=== PATIENT | female | born 1940 | race Caucasian/White ===

== ENCOUNTER 2018-05-17 19:58 | Observation (INO) | payer MEDICARE ==
[2018-05-17] MEDS ORDERED: DUONEB 0.5-3 MG/3 ml Neb IH ONE ×2 (20:28→21:01)
[2018-05-17] MEDS ORDERED: Sodium Chloride 0.9% 1000 ML 1,000 ML IV SCH (20:30)
[2018-05-17] MEDS ORDERED: Sodium Chloride 0.9% 1000 ML 1,000 ML ONE (20:33)
--- NOTE | 2018-05-17 20:34 | ERPHSYRPT ---
- History of Present Illness Time Seen by Provider: 05/17/18 20:23 Source: patient Exam Limitations: no limitations Patient Subjective Stated Complaint: PT C/O COUGHING UP PHLEGM AND SOB X 4 DAYS. Triage Nursing Assessment: PALE/WARM/DRY, INCREASED RESP RATE AND EFFORT, HYPOXIC ON ROOM AIR, A&OX4, PT WHEELED TO ROOM, ABLE TO STAND AND TRANSFER FROM CHAIR TO BED. Physician History: 78-year-old white female with history of cataracts, COPD, hypercholesterolemia, peripheral vascular disease, arrives with complaint of cough, shortness of breath, coughing up phlegm, occasional increased temperature, vomiting symptoms for 4 days She denies any chest pain. Past medical history includes cataracts, COPD, hypercholesterolemia, peripheral vascular disease, hemorrhoids, polyps, arthritis, past surgical history includes cardiac catheter, hysterectomy, breast biopsy on the left, Social history former smoker Timing/Duration: day(s) (4 days) Activities at Onset: none Severity of Dyspnea-Max: moderate Severity of Dyspnea-Current: mild Modifying Factors: Improves With: nothing Associated Symptoms: cough, fever, productive cough, No anxiety, No chest pain/ discomfort, No edema, No insomnia, No loss of appetite, No lightheadedness, No wheezing, No weakness, No ankle swelling, No chills, No hemoptysis, No calf pain , No dizziness, No heaviness, No heart racing, No lightheadedness, No leg swelling, No muscle spasms feet, No muscle spasms hands, No painful breathing, No sweating, No tightness, No tingling face, No tingling hands International travel in last 2 weeks: No Allergies/Adverse Reactions: No Known Drug Allergies Allergy (Verified 05/17/18 20:04) Home Medications: Albuterol 17 gm IH DAILY PRN PRN 09/16/12 [History] Aspirin [Baby Aspirin] 81 mg PO DAILY 09/16/12 [History] Atorvastatin Calcium 40 mg PO DAILY 09/16/12 [History] Diltiazem HCl 240 mg [Cardizem CD 240 MG] 240 mg PO DAILY 09/16/12 [ History] Docusate Sodium [Stool Softener] 100 mg PO DAILY 09/16/12 [History] Fluticasone/Salmeterol [Advair Hfa 115-21 Mcg Inhaler] 8 gm IH BID 09/16/12 [ History] Ipratropium/Albuterol Sulfate [Combivent Inhaler] 15 gm IH BID 09/16/12 [History ] Metoprolol Tartrate 50 mg [Lopressor 50 MG] 50 mg PO BID 09/16/12 [History ] Potassium Chloride [Klor-Con 8] 8 meq PO DAILY 09/16/12 [History] Triamterene/Hydrochlorothiazid [Triamterene-Hctz 75-50 mg Tab] 1 each PO DAILY 09/16/12 [History] Calcium Carb, Citrate/Vit D3 [Calcium + D3 ER Tablet] 1 tab PO BID 05/17/18 [ History] Hx Tetanus, Diphtheria Vaccination/Date Given: No Hx Influenza Vaccination/Date Given: No Hx Pneumococcal Vaccination/Date Given: No Immunizations Up to Date: No - Review of Systems Constitutional: No Fever, No Chills, No Fatigue, No Lethargy, No Malaise, No Night Sweats, No Weakness, No Weight Loss Eyes: No Symptoms Ears, Nose, & Throat: No Symptoms Respiratory: Cough, Dyspnea, No Wheezing Cardiac: No Chest Pain, No Edema, No Syncope Abdominal/Gastrointestinal: Nausea, Vomiting, No Abdominal Pain, No Diarrhea Genitourinary Symptoms: No Dysuria Musculoskeletal: No Back Pain, No Neck Pain Skin: No Rash Neurological: No Dizziness, No Focal Weakness, No Sensory Changes Psychological: No Symptoms Endocrine: No Symptoms All Other Systems: Reviewed and Negative - Past Medical History Pertinent Past Medical History: Yes Neurological History: No Pertinent History ENT History: Cataracts Cardiac History: High Cholesterol, Hypertension, Peripheral Vascular Disease Respiratory History: COPD Endocrine Medical History: No Pertinent History Musculoskeletal History: Arthritis, Fractures GI Medical History: Hemorrhoids, Polyps History: No Pertinent History Psycho-Social History: No Pertinent History Female Reproductive Disorders: No Pertinent History Other Medical History: colonoscopy 5-[address] Coronel, broken toes - Past Surgical History Past Surgical History: Yes Neuro Surgical History: No Pertinent History Cardiac: Cardiac Catheterization Respiratory: No Pertinent History Gastrointestinal: No Pertinent History Genitourinary: No Pertinent History Musculoskeletal: Other Female Surgical History: Hysterectomy, Other Other Surgical History: 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", colonoscopy with polyectomy 5-6 yrs ago, some broken toes,two breast left,biopsy - Social History Smoking Status: Former smoker Exposure to second hand smoke: Yes Drug Use: none Patient Lives Alone: Yes - Female History Hx Now: No - Nursing Vital Signs Nursing Vital Signs: Initial Vital Signs Temperature 100.7 F 05/17/18 20:05 Pulse Rate 70 05/17/18 20:05 Respiratory Rate 28 H 05/17/18 20:05 Blood Pressure 142/69 05/17/18 20:05 O2 Sat by Pulse Oximetry 85 L 05/17/18 20:05 Pain Scale Pain Intensity 0 - Physical Exam General Appearance: no apparent distress, alert Eye Exam: PERRL/EOMI Neck Exam: normal inspection, supple Respiratory Exam: normal breath sounds, chest tenderness, diminished breath sounds, wheezing Cardiovascular/Chest Exam: normal heart sounds, regular rate/rhythm Abdominal/Gastrointestinal Exam: soft, No tenderness, No distention, No mass Extremity Exam: non-tender, normal range of motion, normal inspection, no calf tenderness, no pedal edema Peripheral Pulses Exam: dorsalis-pedis (R): 2+, dorsalis-pedis (L): 2+ Neurologic Exam: alert, oriented x 3, cooperative, hris analyst II-XII nml as tested, sensation nml, No motor deficits Skin Exam: normal color, warm, No dry SpO2 Interpretation: normal (95%) SpO2: 95 - Course Nursing assessment & vital signs reviewed: Yes EKG Interpreted by Me: RATE (71 bpm), Sinus Rhythm, NORMAL AXIS, Other (EKG: Sinus rhythm, 71 bpm, normal axis, no acute ST or T wave changes noted.) Ordered Tests: Active Orders 24 hr Category Date Time Status Sales Department Supervisor STAT Care 05/17/18 20:29 Active EKG-ER Only STAT Care 05/17/18 20:28 Active IV Insertion STAT Care 05/17/18 20:28 Active Oxygen-ED Only Nasal Cannula 2 lpm Care 05/17/18 20:28 Active Pulse Oximetry (ED) STAT Care 05/17/18 20:28 Active CHEST 1 VIEW (PORTABLE) Stat Exams 05/17/18 20:29 Taken BLOOD CULTURE Stat Lab 05/17/18 20:54 Received CBC W DIFF Stat Lab 05/17/18 20:38 Completed CMP Stat Lab 05/17/18 20:38 Completed CULTURE,SPUTUM Stat Lab 05/17/18 21:57 Received D-DIMER QUANTITATION Stat Lab 05/17/18 20:56 Completed Lactic Acid Stat Lab 05/17/18 21:23 Completed NT PRO BNP Stat Lab 05/17/18 20:38 Completed PROTIME WITH INR Stat Lab 05/17/18 20:56 Completed PTT Stat Lab 05/17/18 20:56 Completed TROPONIN Q3H Lab 05/17/18 20:41 Completed TROPONIN Q3H Lab 05/17/18 23:30 Ordered TROPONIN Q3H Lab 05/18/18 02:30 Ordered TROPONIN Q3H Lab 05/18/18 05:30 Ordered TROPONIN Q3H Lab 05/18/18 08:30 Ordered UA W/RFX UR CULTURE Stat Lab 05/17/18 21:57 Received VENOUS BLOOD GAS Stat Lab 05/17/18 21:23 Completed Peak Expiratory Flow Rate ONCE RT 05/17/18 21:05 Completed Respiratory Nebulizer STAT RT 05/17/18 20:29 Completed Respiratory Therapy Assessment DAILY RT 05/17/18 21:03 Completed Medication Summary Generic Name Dose Route Start Last Admin Trade Name Freq PRN Reason Stop Dose Admin Sodium Chloride 1,000 mls @ 100 mls/hr 05/17/18 20:30 05/17/18 20:38 Sodium Chloride 0.9% 1000 Ml IV 06/16/18 20:29 100 mls/hr .Q10H JIMBO Administration Discontinued Medications Generic Name Dose Route Start Last Admin Trade Name Freq PRN Reason Stop Dose Admin Albuterol/Ipratropium 3 ml 05/17/18 20:28 05/17/18 21:06 Duoneb 0.5-3 Mg/3 Ml Neb IH 05/17/18 20:29 3 ml STAT ONE Administration Albuterol/Ipratropium Confirm 05/17/18 21:01 Duoneb 0.5-3 Mg/3 Ml Neb Administered 05/17/18 21:02 Dose 3 ml IH .STK-MED ONE Oseltamivir Phosphate 75 mg 05/17/18 22:37 Tamiflu 75mg Capsule PO 05/17/18 22:38 STAT ONE Lab/Rad Data: Laboratory Result Diagrams 05/17/18 20:38 05/17/18 20:38 Laboratory Results 05/17/18 05/17/18 05/17/18 Range/Units 21:23 21:12 20:56 WBC (4.0-10.5) K/mm3 RBC (4.1-5.4) M/mm3 Hgb (12.0-16.0) gm/dl Hct (35-47) % MCV (78-100) fl MCH (26-32) pg MCHC (32-36) g/dl RDW (11.5-14.0) % Plt Count (150-450) K/mm3 MPV (6-9.5) fl Gran % (36.0-66.0) % Eos # (Auto) (0-0.5) Absolute Lymphs (auto) (1.0-4.6) Absolute Monos (auto) (0.0-1.3) Lymphocytes % (24.0-44.0) % Monocytes % (0.0-12.0) % Eosinophils % (0.00-5.0) % Basophils % (0.0-0.4) % Absolute Granulocytes (1.4-6.9) Basophils # (0-0.4) PT 12.2 (9.95-12.35) SECONDS INR 1.05 (0.8-3.0) APTT 20.8 L (25.3-37.0) SECONDS D-Dimer 577 H* (215-500) ng/mL pO2/FiO2 Ratio 28.0 % VBG pH 7.41 (7.32-7.42) VBG pCO2 at Pat Temp 56 H (42-55) mm/Hg VBG pO2 at Pat Temp 23 L (25-40) mm/Hg VBG HCO3 35.5 H* (22-28) meq/L VBG O2 Sat (Sanjay) 41.4 L (95-100) VBG Base Excess 8.7 H (-2.0-2.0) VBG Hemoglobin 14.8 VBG Carboxyhemoglobin 2.1 (0.0-6.9) % T HGB POC Potassium 4.2 (3.5-5.1) Sodium (137-145) mmol/L Potassium (3.5-5.1) mmol/L Chloride (98-107) mmol/L Carbon Dioxide (22-30) mmol/L Anion Gap (5-15) MEQ/L BUN (7-17) mg/dL Creatinine (0.52-1.04) mg/dL Estimated GFR ML/MIN Glucose (74-106) mg/dL Lactic Acid 1.7 (0.4-2.0) Calcium (8.4-10.2) mg/dL Total Bilirubin (0.2-1.3) mg/dL AST (14-36) U/L ALT (0-35) U/L Alkaline Phosphatase (38-126) U/L Troponin I (0.000-0.034) ng/mL NT-Pro-B Natriuret Pep (0-1800) pg/mL Serum Total Protein (6.3-8.2) g/dL Albumin (3.5-5.0) g/dL Influenza Type A Ag POSITIVE (NEGATIVE) Influenza Type B Ag NEGATIVE (NEGATIVE) RSV (PCR) NEGATIVE (Negative) Group A Strep Antibody NEGATIVE (NEGATIVE) 05/17/18 05/17/18 05/17/18 Range/Units 20:41 20:38 20:38 WBC 5.4 (4.0-10.5) K/mm3 RBC 5.10 (4.1-5.4) M/mm3 Hgb 14.4 (12.0-16.0) gm/dl Hct 44.8 (35-47) % MCV 87.8 (78-100) fl MCH 28.2 (26-32) pg MCHC 32.1 (32-36) g/dl RDW 14.9 H (11.5-14.0) % Plt Count 214 (150-450) K/mm3 MPV 9.4 (6-9.5) fl Gran % 76.4 H (36.0-66.0) % Eos # (Auto) 0 (0-0.5) Absolute Lymphs (auto) 0.61 L (1.0-4.6) Absolute Monos (auto) 0.66 (0.0-1.3) Lymphocytes % 11.2 L (24.0-44.0) % Monocytes % 12.2 H (0.0-12.0) % Eosinophils % 0.0 (0.00-5.0) % Basophils % 0.2 (0.0-0.4) % Absolute Granulocytes 4.15 (1.4-6.9) Basophils # 0.01 (0-0.4) PT (9.95-12.35) SECONDS INR (0.8-3.0) APTT (25.3-37.0) SECONDS D-Dimer (215-500) ng/mL pO2/FiO2 Ratio % VBG pH (7.32-7.42) VBG pCO2 at Pat Temp (42-55) mm/Hg VBG pO2 at Pat Temp (25-40) mm/Hg VBG HCO3 (22-28) meq/L VBG O2 Sat (Sanjay) (95-100) VBG Base Excess (-2.0-2.0) VBG Hemoglobin VBG Carboxyhemoglobin (0.0-6.9) % T HGB POC Potassium (3.5-5.1) Sodium 135 L (137-145) mmol/L Potassium 3.8 (3.5-5.1) mmol/L Chloride 91 L (98-107) mmol/L Carbon Dioxide 32 H (22-30) mmol/L Anion Gap 16.3 H (5-15) MEQ/L BUN 35 H (7-17) mg/dL Creatinine 1.50 H (0.52-1.04) mg/dL Estimated GFR 35.5 ML/MIN Glucose 101 (74-106) mg/dL Lactic Acid (0.4-2.0) Calcium 10.3 H (8.4-10.2) mg/dL Total Bilirubin 0.70 (0.2-1.3) mg/dL AST 36 (14-36) U/L ALT 25 (0-35) U/L Alkaline Phosphatase 79 (38-126) U/L Troponin I < 0.012 (0.000-0.034) ng/mL NT-Pro-B Natriuret Pep 329 (0-1800) pg/mL Serum Total Protein 8.2 (6.3-8.2) g/dL Albumin 4.2 (3.5-5.0) g/dL Influenza Type A Ag (NEGATIVE) Influenza Type B Ag (NEGATIVE) RSV (PCR) (Negative) Group A Strep Antibody (NEGATIVE) - Progress Progress: improved Air Movement: fair Progress Note: 05/17/18 22:41 78-year-old white female arrives with complaint of shortness of breath cough protective of white sputum symptoms going on for few days patient with oxygenation of 85% on room air on arrival. Patient with EKG remarkable for sinus rhythm at 71 bpm normal axis no acute ST or T wave changes are noted Patient's labs CBC white blood cell 5.4 hemoglobin 14.4 hematocrit 44.8 platelets 214 Chest x-ray appears to show COPD no acute changes. Patient with the essentially normal chemistry patient with positive influenza a troponin within normal limits BMP 329. Patient has improved after receiving albuterol treatment patient has also been given IV normal saline also given Tamiflu. I've discussed patient's case with Dr. Adams will give patient IV steroids place her on telemetry observation provide albuterol treatments provide Tamiflu provide IV fluids. Impression 1 shortness of breath. 2 COPD. 3 influenza A. - Departure Departure Disposition: Observation Clinical Impression: COPD with exacerbation, Shortness of breath, Influenza A Condition: Fair Critical Care Time: No Referrals: CARL CORONEL [Primary Care Provider] - Instructions: Chronic Obstructive Pulmonary Disease
[2018-05-17 20:44] LABS: BASOPHIL % 0.2 % (0.0-0.4); Basophil (Absolute #) 0.01 (0-0.4); Eosinophil (Absolute #) 0 (0-0.5); Granulocyte Absolute (ANC) 4.15 (1.4-6.9); Granulocytes % 76.4 % (36.0-66.0); Hematocrit 44.8 % (35-47); Hemoglobin 14.4 gm/dl (12.0-16.0); Lymphocyte (Absolute #) 0.61 (1.0-4.6); Lymphocytes % 11.2 % (24.0-44.0); Mean Cell Volume 87.8 fl (78-100); Mean Corpuscular Hemoglobin 28.2 pg (26-32); Mean Corpuscular Hgb Concent. 32.1 g/dl (32-36); Mean Platelet Volume 9.4 fl (6-9.5); Monocyte (Absolute #) 0.66 (0.0-1.3); Monocytes % 12.2 % (0.0-12.0); Platelet Count 214 K/mm3 (150-450); Red Cell Distribution Width 14.9 % (11.5-14.0); White Blood Count 5.4 K/mm3 (4.0-10.5)
[2018-05-17 20:57] LABS: ALBUMIN 4.2 g/dL (3.5-5.0); ANION GAP 16.3 MEQ/L (5-15); BILIRUBIN,TOTAL 0.7 mg/dL (0.2-1.3); Calcium 10.3 mg/dL (8.4-10.2); Creatinine 1 1.5 mg/dL (0.52-1.04); Potassium 3.8 mmol/L (3.5-5.1); Total Protein 8.2 g/dL (6.3-8.2)
[2018-05-17 21:09] LABS: INR 1.05 (0.8-3.0); PROTIME 12.2 SECONDS (9.95-12.35)
[2018-05-17 21:12] LABS: PTT 20.8 SECONDS (25.3-37.0)
[2018-05-17 21:28] LABS: Lactic Acid 1.7 (0.4-2.0); VBG BASE EXCESS 8.7 (-2.0-2.0); VBG CARBOXYHEMOGLOBIN 2.1 % T HGB (0.0-6.9); VBG HCO3- 35.5 meq/L (22-28); VBG HEMOGLOBIN 14.8; VBG O2 SATURATION 41.4 (95-100); VBG POTASSIUM 4.2 (3.5-5.1); VBG pH 7.41 (7.32-7.42)
[2018-05-17 21:51] LABS: Group A Strep NEGATIVE (NEGATIVE)
[2018-05-17 21:52] LABS: INFLUENZA A POSITIVE (NEGATIVE); INFLUENZA B NEGATIVE (NEGATIVE); RESPIRATORY SYNCTIAL VIRUS NEGATIVE (Negative)
[2018-05-17 22:29] LABS: Appearance SLIGHTLY CLOUDY (CLEAR); Bilirubin NEGATIVE (NEGATIVE); Blood NEGATIVE Ery/ul (0-5); Glucose NEGATIVE (NEGATIVE); Hyaline Casts 0-2 /LPF (0-2); Ketones NEGATIVE (NEGATIVE); Leukocyte Esterase NEGATIVE (NEGATIVE); Mucus SLIGHT /HPF (NEGATIVE); Nitrite NEGATIVE (NEGATIVE); Protein,Urine Dip NEGATIVE (Negative); Specific Gravity 1.018 (1.005-1.025); Urobilinogen 2 mg/dL (0-1); WBC 0-2 /HPF (0-5)
[2018-05-17] MEDS ORDERED: Tamiflu 75MG Capsule PO ONE ×2 (22:37→22:53)
[2018-05-17 22:42] LABS: Bacteria NONE SEEN /HPF (NEGATIVE)
[2018-05-17] MEDS ORDERED: solu-MEDROL 125 MG IV ONE (22:43)
[2018-05-17] MEDS ORDERED: solu-MEDROL 125 MG ONE (22:53)
[2018-05-17] MEDS ORDERED: DUONEB 0.5-3 MG/3 ml Neb IH PRN (23:31)
[2018-05-18] MEDS: solu-MEDROL 125 MG IV SCH ×2 (02:12→04:53)
[2018-05-18] MEDS: Sodium Chloride 0.9% 1000 ML 1,000 ML IV SCH ×3 (02:13→16:19)
[2018-05-18 05:53] LABS: BASOPHIL % 0.2 % (0.0-0.4); Basophil (Absolute #) 0.01 (0-0.4); Eosinophil (Absolute #) 0 (0-0.5); Granulocyte Absolute (ANC) 5.23 (1.4-6.9); Granulocytes % 88.7 % (36.0-66.0); Hematocrit 41.7 % (35-47); Hemoglobin 13.4 gm/dl (12.0-16.0); Lymphocyte (Absolute #) 0.51 (1.0-4.6); Lymphocytes % 8.6 % (24.0-44.0); Mean Corpuscular Hemoglobin 28.3 pg (26-32); Mean Corpuscular Hgb Concent. 32.1 g/dl (32-36); Mean Platelet Volume 9.1 fl (6-9.5); Monocyte (Absolute #) 0.15 (0.0-1.3); Monocytes % 2.5 % (0.0-12.0); Platelet Count 196 K/mm3 (150-450); Red Blood Count 4.74 M/mm3 (4.1-5.4); Red Cell Distribution Width 14.9 % (11.5-14.0); White Blood Count 5.9 K/mm3 (4.0-10.5)
[2018-05-18 06:07] LABS: ALBUMIN 3.7 g/dL (3.5-5.0); ANION GAP 13.9 MEQ/L (5-15); BILIRUBIN,TOTAL 0.6 mg/dL (0.2-1.3); Calcium 9.5 mg/dL (8.4-10.2); Creatinine 1 1.17 mg/dL (0.52-1.04); Potassium 3.5 mmol/L (3.5-5.1); Total Protein 7.2 g/dL (6.3-8.2)
[2018-05-18 06:45] LABS: Slide Review 1 YES
[2018-05-18] MEDS ORDERED: Advair Hfa 115/21 Common canister IH SCH (07:00)
--- NOTE | 2018-05-18 08:14 | PCM.HP ---
History of Present Illness - Chief Complaint Chief Complaint: COPD, SOB, Flu A History of Present Illness: is a 78 year old female presents to ER with a several day history of cough and worsening shortness of breath and weakness, she was weak and having difficulty ambulating from room to room yesterday in her home, came and found to have influenza A, feeling better since admission. initially had vomiting and diarrhea associated with her illness - Review of Systems Constitutional: Fever, Weakness Ears, Nose, & Throat: No Symptoms Respiratory: Cough, Short Of Breath Cardiac: No Chest Pain, No Edema, No Syncope Abdominal/Gastrointestinal: Vomiting, Diarrhea, No Abdominal Pain, No Nausea Skin: No Rash All Other Systems: Reviewed and Negative Medications & Allergies Home Medications: Home Medication List Albuterol 17 gm IH DAILY PRN PRN 09/16/12 [History Confirmed 05/17/18] Aspirin [Baby Aspirin] 81 mg PO DAILY 09/16/12 [History Confirmed 05/17/18] Atorvastatin Calcium 40 mg PO DAILY 09/16/12 [History Confirmed 05/17/18] Diltiazem HCl 240 mg [Cardizem CD 240 MG] 240 mg PO DAILY 09/16/12 [ History Confirmed 05/17/18] Docusate Sodium [Stool Softener] 100 mg PO DAILY 09/16/12 [History Confirmed 07/30] Fluticasone/Salmeterol [Advair Hfa 115-21 Mcg Inhaler] 8 gm IH BID 09/16/12 [ History Confirmed 05/17/18] Ipratropium/Albuterol Sulfate [Combivent Inhaler] 15 gm IH BID 09/16/12 [ History Confirmed 05/17/18] Metoprolol Tartrate 50 mg [Lopressor 50 MG] 50 mg PO BID 09/16/12 [ History Confirmed 05/17/18] Potassium Chloride [Klor-Con 8] 8 meq PO DAILY 09/16/12 [History Confirmed 05/17] Triamterene/Hydrochlorothiazid [Triamterene-Hctz 75-50 mg Tab] 1 each PO DAILY 09/16/12 [History Confirmed 05/17/18] Calcium Carb, Citrate/Vit D3 [Calcium + D3 ER Tablet] 1 tab PO BID 05/17/18 [ History Confirmed 05/17/18] Allergies/Adverse Reactions: Allergies Allergy/AdvReac Type Severity Reaction Status Date / Time No Known Drug Allergies Allergy Verified 05/17/18 20:04 - Past Medical History Past Medical History: Yes Neurological History: No Pertinent History ENT History: Cataracts Cardiac History: High Cholesterol, Hypertension, Peripheral Vascular Disease Respiratory History: COPD Endocrine Medical History: No Pertinent History Musculoskelatal History: Arthritis, Fractures GI Medical History: Hemorrhoids, Polyps History: No Pertinent History Pyscho-Social History: No Pertinent History Reproductive Disorders: No Pertinent History Comment: colonoscopy 5-[address] Coronel, broken toes - Female History Are you now?: No - Past Surgical History Past Surgical History: Yes Neuro Surgical History: No Pertinent History Cardiac History: Cardiac Catheterization Respiratory Surgery: No Pertinent History GI Surgical History: No Pertinent History Genitourinary Surgical Hx: No Pertinent History Musculskeletal Surgical Hx: Other Female Surgical History: Hysterectomy, Other Other Surgical History: 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", colonoscopy with polyectomy 5-6 yrs ago, some broken toes,two breast left,biopsy - Social History Smoking Status: Former smoker Exposure to second hand smoke: Yes Alcohol: None Drug Use: none - Physical Exam Vital Signs: Vital Signs - 24 hr Temp Pulse Resp BP Pulse Ox 05/18/18 07:23 98.2 F 80 18 129/58 97 05/18/18 04:35 68 18 93 L 05/18/18 04:00 97.9 F 69 17 111/61 93 L 05/18/18 00:14 98.8 F 82 19 127/60 92 L 05/18/18 00:00 98.9 F 82 19 127/60 92 L 05/17/18 23:45 93 L 05/17/18 23:01 79 24 128/66 92 L 05/17/18 22:43 95 05/17/18 21:57 75 18 130/68 95 05/17/18 21:07 68 19 95 05/17/18 20:39 88 L 05/17/18 20:13 71 24 95 05/17/18 20:05 100.7 F 70 28 H 142/69 85 L Oxygen-Last 24 hours O2 Percentage 2 Liters = 28% O2 Percentage 2 Liters = 28% O2 Percentage 2 Liters = 28% O2 Percentage 2 Liters = 28% O2 Percentage 2 Liters = 28% O2 Percentage 2 Liters = 28% General Appearance: no apparent distress Neurologic Exam: alert, oriented x 3 Respiratory Exam: diminished breath sounds, prolonged expirations Cardiovascular Exam: regular rate/rhythm, normal heart sounds, normal peripheral pulses Gastrointestinal/Abdomen Exam: soft, normal bowel sounds, No tenderness, No mass Extremity Exam: normal inspection, normal range of motion, pelvis stable Skin Exam: normal color, warm, dry, No rash Results - Labs Lab/Micro Results: Lab Results-Last 24 Hours 05/17/18 05/17/18 05/17/18 Range/Units 00:03 20:38 20:38 WBC 5.4 (4.0-10.5) K/mm3 RBC 5.10 (4.1-5.4) M/mm3 Hgb 14.4 (12.0-16.0) gm/dl Hct 44.8 (35-47) % MCV 87.8 (78-100) fl MCH 28.2 (26-32) pg MCHC 32.1 (32-36) g/dl RDW 14.9 H (11.5-14.0) % Plt Count 214 (150-450) K/mm3 MPV 9.4 (6-9.5) fl Gran % 76.4 H (36.0-66.0) % Eos # (Auto) 0 (0-0.5) Absolute Lymphs (auto) 0.61 L (1.0-4.6) Absolute Monos (auto) 0.66 (0.0-1.3) Lymphocytes % 11.2 L (24.0-44.0) % Monocytes % 12.2 H (0.0-12.0) % Eosinophils % 0.0 (0.00-5.0) % Basophils % 0.2 (0.0-0.4) % Absolute Granulocytes 4.15 (1.4-6.9) Basophils # 0.01 (0-0.4) PT (9.95-12.35) SECONDS INR (0.8-3.0) APTT (25.3-37.0) SECONDS D-Dimer (215-500) ng/mL pO2/FiO2 Ratio % VBG pH (7.32-7.42) VBG pCO2 at Pat Temp (42-55) mm/Hg VBG pO2 at Pat Temp (25-40) mm/Hg VBG HCO3 (22-28) meq/L VBG O2 Sat (Sanjay) (95-100) VBG Base Excess (-2.0-2.0) VBG Hemoglobin VBG Carboxyhemoglobin (0.0-6.9) % T HGB POC Potassium (3.5-5.1) Sodium 135 L (137-145) mmol/L Potassium 3.8 (3.5-5.1) mmol/L Chloride 91 L (98-107) mmol/L Carbon Dioxide 32 H (22-30) mmol/L Anion Gap 16.3 H (5-15) MEQ/L BUN 35 H (7-17) mg/dL Creatinine 1.50 H (0.52-1.04) mg/dL Estimated GFR 35.5 ML/MIN Glucose 101 (74-106) mg/dL Lactic Acid (0.4-2.0) Calcium 10.3 H (8.4-10.2) mg/dL Total Bilirubin 0.70 (0.2-1.3) mg/dL AST 36 (14-36) U/L ALT 25 (0-35) U/L Alkaline Phosphatase 79 (38-126) U/L Troponin I < 0.012 (0.000-0.034) ng/mL NT-Pro-B Natriuret Pep 329 (0-1800) pg/mL Serum Total Protein 8.2 (6.3-8.2) g/dL Albumin 4.2 (3.5-5.0) g/dL Urine Color (YELLOW) Urine Appearance (CLEAR) Urine pH (5-6) Ur Specific [place] (1.005-1.025) Urine Protein (Negative) Urine Ketones (NEGATIVE) Urine Blood (0-5) David/ul Urine Nitrite (NEGATIVE) Urine Bilirubin (NEGATIVE) Urine Urobilinogen (0-1) mg/dL Ur Leukocyte Esterase (NEGATIVE) Urine WBC (Auto) (0-5) /HPF Urine RBC (Auto) (0-2) /HPF U Hyaline Cast (Auto) (0-2) /LPF U Epithel Cells (Auto) (FEW) /HPF Urine Bacteria (Auto) (NEGATIVE) /HPF Urine Mucus (Auto) (NEGATIVE) /HPF Urine Culture Reflexed (NO) Urine Glucose (NEGATIVE) mg/dL Influenza Type A Ag (NEGATIVE) Influenza Type B Ag (NEGATIVE) RSV (PCR) (Negative) Group A Strep Antibody (NEGATIVE) Slides for Path Review 05/17/18 05/17/18 05/17/18 Range/Units 20:41 20:56 21:12 WBC (4.0-10.5) K/mm3 RBC (4.1-5.4) M/mm3 Hgb (12.0-16.0) gm/dl Hct (35-47) % MCV (78-100) fl MCH (26-32) pg MCHC (32-36) g/dl RDW (11.5-14.0) % Plt Count (150-450) K/mm3 MPV (6-9.5) fl Gran % (36.0-66.0) % Eos # (Auto) (0-0.5) Absolute Lymphs (auto) (1.0-4.6) Absolute Monos (auto) (0.0-1.3) Lymphocytes % (24.0-44.0) % Monocytes % (0.0-12.0) % Eosinophils % (0.00-5.0) % Basophils % (0.0-0.4) % Absolute Granulocytes (1.4-6.9) Basophils # (0-0.4) PT 12.2 (9.95-12.35) SECONDS INR 1.05 (0.8-3.0) APTT 20.8 L (25.3-37.0) SECONDS D-Dimer 577 H* (215-500) ng/mL pO2/FiO2 Ratio % VBG pH (7.32-7.42) VBG pCO2 at Pat Temp (42-55) mm/Hg VBG pO2 at Pat Temp (25-40) mm/Hg VBG HCO3 (22-28) meq/L VBG O2 Sat (Sanjay) (95-100) VBG Base Excess (-2.0-2.0) VBG Hemoglobin VBG Carboxyhemoglobin (0.0-6.9) % T HGB POC Potassium (3.5-5.1) Sodium (137-145) mmol/L Potassium (3.5-5.1) mmol/L Chloride (98-107) mmol/L Carbon Dioxide (22-30) mmol/L Anion Gap (5-15) MEQ/L BUN (7-17) mg/dL Creatinine (0.52-1.04) mg/dL Estimated GFR ML/MIN Glucose (74-106) mg/dL Lactic Acid (0.4-2.0) Calcium (8.4-10.2) mg/dL Total Bilirubin (0.2-1.3) mg/dL AST (14-36) U/L ALT (0-35) U/L Alkaline Phosphatase (38-126) U/L Troponin I < 0.012 (0.000-0.034) ng/mL NT-Pro-B Natriuret Pep (0-1800) pg/mL Serum Total Protein (6.3-8.2) g/dL Albumin (3.5-5.0) g/dL Urine Color (YELLOW) Urine Appearance (CLEAR) Urine pH (5-6) Ur Specific [place] (1.005-1.025) Urine Protein (Negative) Urine Ketones (NEGATIVE) Urine Blood (0-5) David/ul Urine Nitrite (NEGATIVE) Urine Bilirubin (NEGATIVE) Urine Urobilinogen (0-1) mg/dL Ur Leukocyte Esterase (NEGATIVE) Urine WBC (Auto) (0-5) /HPF Urine RBC (Auto) (0-2) /HPF U Hyaline Cast (Auto) (0-2) /LPF U Epithel Cells (Auto) (FEW) /HPF Urine Bacteria (Auto) (NEGATIVE) /HPF Urine Mucus (Auto) (NEGATIVE) /HPF Urine Culture Reflexed (NO) Urine Glucose (NEGATIVE) mg/dL Influenza Type A Ag POSITIVE (NEGATIVE) Influenza Type B Ag NEGATIVE (NEGATIVE) RSV (PCR) NEGATIVE (Negative) Group A Strep Antibody NEGATIVE (NEGATIVE) Slides for Path Review 05/17/18 05/17/18 05/18/18 Range/Units 21:23 21:57 05:20 WBC 5.9 (4.0-10.5) K/mm3 RBC 4.74 (4.1-5.4) M/mm3 Hgb 13.4 (12.0-16.0) gm/dl Hct 41.7 (35-47) % MCV 88.0 (78-100) fl MCH 28.3 (26-32) pg MCHC 32.1 (32-36) g/dl RDW 14.9 H (11.5-14.0) % Plt Count 196 (150-450) K/mm3 MPV 9.1 (6-9.5) fl Gran % 88.7 H (36.0-66.0) % Eos # (Auto) 0 (0-0.5) Absolute Lymphs (auto) 0.51 L (1.0-4.6) Absolute Monos (auto) 0.15 (0.0-1.3) Lymphocytes % 8.6 L (24.0-44.0) % Monocytes % 2.5 (0.0-12.0) % Eosinophils % 0.0 (0.00-5.0) % Basophils % 0.2 (0.0-0.4) % Absolute Granulocytes 5.23 (1.4-6.9) Basophils # 0.01 (0-0.4) PT (9.95-12.35) SECONDS INR (0.8-3.0) APTT (25.3-37.0) SECONDS D-Dimer (215-500) ng/mL pO2/FiO2 Ratio 28.0 % VBG pH 7.41 (7.32-7.42) VBG pCO2 at Pat Temp 56 H (42-55) mm/Hg VBG pO2 at Pat Temp 23 L (25-40) mm/Hg VBG HCO3 35.5 H* (22-28) meq/L VBG O2 Sat (Sanjay) 41.4 L (95-100) VBG Base Excess 8.7 H (-2.0-2.0) VBG Hemoglobin 14.8 VBG Carboxyhemoglobin 2.1 (0.0-6.9) % T HGB POC Potassium 4.2 (3.5-5.1) Sodium (137-145) mmol/L Potassium (3.5-5.1) mmol/L Chloride (98-107) mmol/L Carbon Dioxide (22-30) mmol/L Anion Gap (5-15) MEQ/L BUN (7-17) mg/dL Creatinine (0.52-1.04) mg/dL Estimated GFR ML/MIN Glucose (74-106) mg/dL Lactic Acid 1.7 (0.4-2.0) Calcium (8.4-10.2) mg/dL Total Bilirubin (0.2-1.3) mg/dL AST (14-36) U/L ALT (0-35) U/L Alkaline Phosphatase (38-126) U/L Troponin I (0.000-0.034) ng/mL NT-Pro-B Natriuret Pep (0-1800) pg/mL Serum Total Protein (6.3-8.2) g/dL Albumin (3.5-5.0) g/dL Urine Color YELLOW (YELLOW) Urine Appearance SLIGHTLY CLOUDY (CLEAR) Urine pH 6.0 (5-6) Ur Specific [place] 1.018 (1.005-1.025) Urine Protein NEGATIVE (Negative) Urine Ketones NEGATIVE (NEGATIVE) Urine Blood NEGATIVE (0-5) David/ul Urine Nitrite NEGATIVE (NEGATIVE) Urine Bilirubin NEGATIVE (NEGATIVE) Urine Urobilinogen 2 (0-1) mg/dL Ur Leukocyte Esterase NEGATIVE (NEGATIVE) Urine WBC (Auto) 0-2 (0-5) /HPF Urine RBC (Auto) 3-5 (0-2) /HPF U Hyaline Cast (Auto) 0-2 (0-2) /LPF U Epithel Cells (Auto) NONE (FEW) /HPF Urine Bacteria (Auto) NONE SEEN (NEGATIVE) /HPF Urine Mucus (Auto) SLIGHT (NEGATIVE) /HPF Urine Culture Reflexed NO (NO) Urine Glucose NEGATIVE (NEGATIVE) mg/dL Influenza Type A Ag (NEGATIVE) Influenza Type B Ag (NEGATIVE) RSV (PCR) (Negative) Group A Strep Antibody (NEGATIVE) Slides for Path Review YES 05/18/18 Range/Units 05:20 WBC (4.0-10.5) K/mm3 RBC (4.1-5.4) M/mm3 Hgb (12.0-16.0) gm/dl Hct (35-47) % MCV (78-100) fl MCH (26-32) pg MCHC (32-36) g/dl RDW (11.5-14.0) % Plt Count (150-450) K/mm3 MPV (6-9.5) fl Gran % (36.0-66.0) % Eos # (Auto) (0-0.5) Absolute Lymphs (auto) (1.0-4.6) Absolute Monos (auto) (0.0-1.3) Lymphocytes % (24.0-44.0) % Monocytes % (0.0-12.0) % Eosinophils % (0.00-5.0) % Basophils % (0.0-0.4) % Absolute Granulocytes (1.4-6.9) Basophils # (0-0.4) PT (9.95-12.35) SECONDS INR (0.8-3.0) APTT (25.3-37.0) SECONDS D-Dimer (215-500) ng/mL pO2/FiO2 Ratio % VBG pH (7.32-7.42) VBG pCO2 at Pat Temp (42-55) mm/Hg VBG pO2 at Pat Temp (25-40) mm/Hg VBG HCO3 (22-28) meq/L VBG O2 Sat (Sanjay) (95-100) VBG Base Excess (-2.0-2.0) VBG Hemoglobin VBG Carboxyhemoglobin (0.0-6.9) % T HGB POC Potassium (3.5-5.1) Sodium 134 L (137-145) mmol/L Potassium 3.5 (3.5-5.1) mmol/L Chloride 96 L (98-107) mmol/L Carbon Dioxide 28 (22-30) mmol/L Anion Gap 13.9 (5-15) MEQ/L BUN 31 H (7-17) mg/dL Creatinine 1.17 H (0.52-1.04) mg/dL Estimated GFR 47.3 ML/MIN Glucose 187 H (74-106) mg/dL Lactic Acid (0.4-2.0) Calcium 9.5 (8.4-10.2) mg/dL Total Bilirubin 0.60 (0.2-1.3) mg/dL AST 32 (14-36) U/L ALT 22 (0-35) U/L Alkaline Phosphatase 65 (38-126) U/L Troponin I (0.000-0.034) ng/mL NT-Pro-B Natriuret Pep (0-1800) pg/mL Serum Total Protein 7.2 (6.3-8.2) g/dL Albumin 3.7 (3.5-5.0) g/dL Urine Color (YELLOW) Urine Appearance (CLEAR) Urine pH (5-6) Ur Specific [place] (1.005-1.025) Urine Protein (Negative) Urine Ketones (NEGATIVE) Urine Blood (0-5) David/ul Urine Nitrite (NEGATIVE) Urine Bilirubin (NEGATIVE) Urine Urobilinogen (0-1) mg/dL Ur Leukocyte Esterase (NEGATIVE) Urine WBC (Auto) (0-5) /HPF Urine RBC (Auto) (0-2) /HPF U Hyaline Cast (Auto) (0-2) /LPF U Epithel Cells (Auto) (FEW) /HPF Urine Bacteria (Auto) (NEGATIVE) /HPF Urine Mucus (Auto) (NEGATIVE) /HPF Urine Culture Reflexed (NO) Urine Glucose (NEGATIVE) mg/dL Influenza Type A Ag (NEGATIVE) Influenza Type B Ag (NEGATIVE) RSV (PCR) (Negative) Group A Strep Antibody (NEGATIVE) Slides for Path Review - Radiology Impressions Radiology Exams & Impressions: Radiology Procedures Category Date Time Status CHEST 1 VIEW (PORTABLE) Stat Exams 05/17/18 20:29 Taken - Other Procedures and Tests Respiratory Therapy 05/17/18 23:31 Oxygen Nasal Cannula 2 lpm 05/18/18 04:34 Respiratory Therapy Assessment DAILY 05/18/18 07:00 Respiratory MDI BID Assessment/Plan (1) Influenza A Current Visit: Yes Status: Acute Assessment & Plan: continue tamiflu, fluids and supportive care at this time Code(s): J10.1 - FLU DUE TO OTH IDENT INFLUENZA VIRUS W OTH RESP MANIFEST (2) COPD (chronic obstructive pulmonary disease) Current Visit: Yes Status: Acute Assessment & Plan: no wheezing on exam, no indication for steroids at this time (3) Shortness of breath Current Visit: Yes Status: Acute Code(s): R06.02 - SHORTNESS OF BREATH
[2018-05-18] MEDS ORDERED: NON-FORMULARY ITEM (Triamterene/Hydrochlorothiazid [Triamterene-Hctz 75-50 Mg Tab] 1 EACH) PO SCH (10:00)
[2018-05-18] MEDS ORDERED: NON-FORMULARY ITEM (Potassium Chloride [Klor-Con 8] 8 MEQ) PO SCH (10:00)
--- NOTE | 2018-05-18 10:00 | XRAY ---
Indication: Cough. Comparison: May 08, 2012. Portable chest again hyperinflated with minimal bibasilar linear atelectasis/scarring. Heart is not enlarged. Bony thorax intact again with mild osteopenia and degenerative changes. No new/acute findings.
[2018-05-18] MEDS: ADVAIR 250-50 DISKUS 14 DOSE IH SCH ×2 (10:01→20:10)
[2018-05-18] MEDS: Lopressor 50 MG PO SCH ×2 (10:08→22:15)
[2018-05-18] MEDS: ECOTRIN 81 MG PO SCH (10:08)
[2018-05-18] MEDS: Colace 100 MG PO SCH (10:08)
[2018-05-18] MEDS: Klor Con 10 MEQ PO SCH (10:08)
[2018-05-18] MEDS: Cardizem CD 240 MG PO SCH (10:08)
[2018-05-18] MEDS: Tamiflu 75MG Capsule PO SCH ×2 (10:09→22:15)
[2018-05-18] MEDS: Maxzide-25MG Tablet PO SCH (10:09)
[2018-05-19] MEDS: Sodium Chloride 0.9% 1000 ML 1,000 ML IV SCH (03:00)
[2018-05-19 05:44] LABS: Hematocrit 37.8 % (35-47); Hemoglobin 12.2 gm/dl (12.0-16.0); Mean Cell Volume 87.5 fl (78-100); Mean Corpuscular Hemoglobin 28.2 pg (26-32); Mean Corpuscular Hgb Concent. 32.3 g/dl (32-36); Mean Platelet Volume 9.2 fl (6-9.5); Platelet Count 208 K/mm3 (150-450); Red Blood Count 4.32 M/mm3 (4.1-5.4); Red Cell Distribution Width 14.5 % (11.5-14.0); White Blood Count 8.7 K/mm3 (4.0-10.5)
[2018-05-19 06:01] LABS: ALBUMIN 3.3 g/dL (3.5-5.0); ANION GAP 10.7 MEQ/L (5-15); BILIRUBIN,TOTAL 0.3 mg/dL (0.2-1.3); Calcium 9.4 mg/dL (8.4-10.2); Creatinine 1 0.99 mg/dL (0.52-1.04); Potassium 3.6 mmol/L (3.5-5.1); Total Protein 6.6 g/dL (6.3-8.2)
[2018-05-19 06:41] LABS: Lymphocytes 6 % (24-44); Monocyte 3 % (0.0-12.0); Neutrophils 91 % (36.0-66.0); Total Cells Counted 100
[2018-05-19 06:42] LABS: Platelet Estimate NORMAL (NORMAL)
[2018-05-19 07:02] VITALS: BP 123/56
[2018-05-19] MEDS: ADVAIR 250-50 DISKUS 14 DOSE IH SCH (07:42)
[2018-05-19 07:48] VITALS: PULSE 64; O2SAT 93
[2018-05-19] MEDS: Klor Con 10 MEQ PO SCH (09:54)
[2018-05-19] MEDS: Lopressor 50 MG PO SCH (09:54)
[2018-05-19] MEDS: Colace 100 MG PO SCH (09:54)
[2018-05-19] MEDS: Cardizem CD 240 MG PO SCH (09:54)
[2018-05-19] MEDS: Tamiflu 75MG Capsule PO SCH (09:54)
[2018-05-19] MEDS: Maxzide-25MG Tablet PO SCH (09:54)
[2018-05-19] MEDS: ECOTRIN 81 MG PO SCH (09:54)
--- NOTE | 2018-05-19 10:28 | SSS ---
DISCHARGE DIAGNOSES: 1) INFLUENZA A. 2) HYPOXEMIA. 3) VOMITING. 4) HISTORY OF CHRONIC OBSTRUCTIVE PULMONARY DISEASE. HOSPITAL COURSE: The patient is an 78 year-old white female who had been in the doctor's office over the past week for routine check-ups and reported that her son had been ill. She began having trouble feeling bad and started having some vomiting and shortness of breath. She reports she was sick for about four days prior to the emergency room where she was found to have O2 saturation of 85%. She did swab positive for influenza A at that time. The patient was admitted to the hospital for IV fluids, oxygen, nebulizer treatments, IV steroids and Tamiflu. The patient did better with the treatments and was feeling well enough to go home having not vomited over the past 24 hours prior to the morning of 05/19/2018. We will check her O2 saturations at rest and with ambulation on room air to see if she will qualify for home oxygen at this time. She was felt ready to be discharged home with prednisone 30 mg for three days, 20 mg for three days and 10 mg for three days. Tamiflu to finish out a five day course and to follow up in the office in one week or sooner if she had any further problems at this time. PHYSICAL EXAMINATION: The patient's examination revealed a well-nourished, well-developed 78 year-old white female in no obvious distress. Most recent vitals showed a temperature 97.9F, pulse 61, respiratory rate 18, blood pressure 99/54. O2 saturation 93% on supplemental oxygen. HEENT: Normocephalic, atraumatic. Pupils equal round reactive to light. Extraocular movements intact. Oropharynx is pink and moist. NECK: Supple without lymphadenopathy, thyromegaly or JVD. CHEST: Clear to auscultation presently. HEART: Regular rate and rhythm. ABDOMEN: Soft. No palpable masses. EXTREMITIES: Without cyanosis, clubbing or edema. NEUROLOGIC: The patient is alert and oriented x3. LAB DATA AND TESTS: The patient's laboratory studies again were positive for influenza A. Most recent labs showed the patient's troponin to be less than 0.012. Sugar nonfasting was 138, BUN 32, creatinine 0.99. Electrolytes were normal. Liver enzymes were normal. Her white blood cell count was 8,700, hemoglobin 12.2, PLT count 208,000, granulocytes 91% were noted. Chest x-ray on admission was hyperinflation with minimal bibasilar linear atelectasis. The heart was not enlarged. No acute findings were noted. The patient will now be discharged home with follow up in the office in a week, on prednisone 30mg, 20 mg, 10 mg three days each, Tamiflu, PRN nebulizer treatments and usual home medications otherwise.
[2018-05-19] MEDS ORDERED: Sodium Chloride 0.9% 10 ML FLUSH Syringe IV SCH (14:00)
== END 2018-05-19 10:50 | disposition home or self-care (01) ==
LOC: ED 19:58 → MED SURG 23:24
PROVIDERS: ADMIT Family Medicine; ATTEND Family Medicine
DX: J09.X2 Influenza due to identified novel influenza A virus with other respiratory manifestations (principal); I10 Essential (primary) hypertension; E78.00 Pure hypercholesterolemia, unspecified; Z79.899 Other long term (current) drug therapy; J44.9 Chronic obstructive pulmonary disease, unspecified; R06.02 Shortness of breath; R09.02 Hypoxemia; R11.10 Vomiting, unspecified
CPT/HCPCS: 36000; 36415; 71045; 80053; 81001; 82805; 83605; 83880; 84484; 85025; 85379; 85610; 85730; 87040; 87070; 87631; 87651; 93005; 93041; 93268; 94150; 94640; 94762; 96360; 96361; 96374; 99285; G0378; J2930; A9270-GY

== ENCOUNTER 2019-04-23 11:54 | Emergency (ER) | payer MEDICARE ==
[2019-04-23] MEDS ORDERED: MOTRIN 600 MG PO ONE (12:37)
[2019-04-23] MEDS ORDERED: PERCOCET TABLET 5/325MG PO ONE (12:37)
[2019-04-23] MEDS ORDERED: PERCOCET TABLET 5/325MG ONE (12:44)
[2019-04-23] MEDS ORDERED: MOTRIN 600 MG ONE (12:45)
--- NOTE | 2019-04-23 13:18 | XRAY ---
Indication: Pain. No known injury. Comparison: None 3 views of the left ankle obtained. No bony, articular, or soft tissue abnormalities.
--- NOTE | 2019-04-23 13:29 | ERPHSYRPT ---
- History of Present Illness Time Seen by Provider: 04/23/19 11:56 Source: patient, family Exam Limitations: no limitations Patient Subjective Stated Complaint: Pt states "I went to bed night before last and yesterday I woke up yesterday and my left ankle was hurting." Triage Nursing Assessment: Pt presented alert and oriented X 3, skin pwd PT ambulates with a slow limp. Physician History: Patient has left ankle pain. Medial side. No falls no trauma. Does not remember any injuries. Patient is not diabetic. She has not tried taking Tylenol or ibuprofen for the pain. She has not seen her PCP. Started 2 days ago. Location: left ankle Quality: sharp Radiation: none Severity: mild Duration: 2 days Timing: gradual Modifying factors/associated signs and symptoms: none tried Allergies/Adverse Reactions: No Known Drug Allergies Allergy (Verified 05/17/18 20:04) Home Medications: Albuterol 17 gm IH DAILY PRN PRN 09/16/12 [History] Aspirin [Baby Aspirin] 81 mg PO DAILY 09/16/12 [History] Atorvastatin Calcium 40 mg PO DAILY 09/16/12 [History] Diltiazem HCl 240 mg [Cardizem CD 240 MG] 240 mg PO DAILY 09/16/12 [ History] Docusate Sodium [Stool Softener] 100 mg PO DAILY 09/16/12 [History] Fluticasone/Salmeterol [Advair Hfa 115-21 Mcg Inhaler] 8 gm IH BID 09/16/12 [ History] Ipratropium/Albuterol Sulfate [Combivent Inhaler] 15 gm IH BID 09/16/12 [History ] Metoprolol Tartrate 50 mg [Lopressor 50 MG] 50 mg PO BID 09/16/12 [History ] Potassium Chloride [Klor-Con 8] 8 meq PO DAILY 09/16/12 [History] Triamterene/Hydrochlorothiazid [Triamterene-Hctz 75-50 mg Tab] 1 each PO DAILY 09/16/12 [History] Calcium Carb, Citrate/Vit D3 [Calcium + D3 ER Tablet] 1 tab PO BID 05/17/18 [ History] Hx Tetanus, Diphtheria Vaccination/Date Given: Yes Hx Influenza Vaccination/Date Given: Yes Hx Pneumococcal Vaccination/Date Given: Yes Immunizations Up to Date: Yes - Review of Systems Constitutional: No Fever, No Chills Eyes: No Symptoms Ears, Nose, & Throat: No Symptoms Respiratory: No Cough, No Dyspnea Cardiac: No Chest Pain, No Edema, No Syncope Abdominal/Gastrointestinal: No Abdominal Pain, No Nausea, No Vomiting, No Diarrhea Genitourinary Symptoms: No Dysuria, No Vaginal Bleeding Musculoskeletal: Other (medial left ankle pain ), No Back Pain, No Neck Pain Skin: No Rash Neurological: No Dizziness, No Focal Weakness, No Sensory Changes Psychological: No Symptoms Endocrine: No Symptoms All Other Systems: Reviewed and Negative - Past Medical History Pertinent Past Medical History: Yes Neurological History: No Pertinent History ENT History: Cataracts Cardiac History: High Cholesterol, Hypertension, Peripheral Vascular Disease Respiratory History: COPD Endocrine Medical History: No Pertinent History Musculoskeletal History: Arthritis, Fractures GI Medical History: Hemorrhoids, Polyps History: No Pertinent History Psycho-Social History: No Pertinent History Female Reproductive Disorders: No Pertinent History Other Medical History: colonoscopy 5-[address] Coronel, broken toes - Past Surgical History Past Surgical History: Yes Neuro Surgical History: No Pertinent History Cardiac: Cardiac Catheterization Respiratory: No Pertinent History Gastrointestinal: No Pertinent History Genitourinary: No Pertinent History Musculoskeletal: Other Female Surgical History: Hysterectomy, Other Other Surgical History: 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", colonoscopy with polyectomy 5-6 yrs ago, some broken toes,two breast left,biopsy - Social History Smoking Status: Former smoker Exposure to second hand smoke: No Drug Use: none Patient Lives Alone: No - Female History Hx Now: No - Nursing Vital Signs Nursing Vital Signs: Initial Vital Signs Temperature 96.9 F 04/23/19 12:33 Pulse Rate 76 04/23/19 12:33 Respiratory Rate 20 04/23/19 12:33 Blood Pressure 146/88 04/23/19 12:33 O2 Sat by Pulse Oximetry 98 04/23/19 12:33 Pain Scale Pain Intensity [Left Ankle] 9 Pain Intensity 0 - Physical Exam General Appearance: alert Eyes, Ears, Nose, Throat Exam: moist mucous membranes Neck Exam: non-tender, supple Cardiovascular/Respiratory Exam: chest non-tender, normal breath sounds, regular rate/rhythm, no respiratory distress Gastrointestinal/Abdominal Exam: non-tender, guarding Back Exam: normal inspection, No vertebral tenderness Neuro/Tendon Exam: normal sensation, normal motor functions Mental Status Exam: alert, oriented x 3, cooperative Skin Exam: normal color, warm, dry SpO2 Interpretation: normal SpO2: 98 Comments: No obvious deformity, sensation intact, 2+ capillary refill, 2 point tactile discrimination intact. 5 out of 5 strength. Full range of motion without pain. Compartments are soft, nontender. Overlying skin shows no tenting, bruising, ecchymosis. Medial left ankle redness, mild tenderness with minimal edema. No signs of a septic joint. Ordered Tests: Active Orders 24 hr Category Date Time Status ANKLE (3 VIEWS) Stat Exams 04/23/19 12:57 Completed Medication Summary Discontinued Medications Generic Name Dose Route Start Last Admin Trade Name Freq PRN Reason Stop Dose Admin Ibuprofen 600 mg 04/23/19 12:37 04/23/19 12:46 Motrin 600 Mg PO 04/23/19 12:38 600 mg STAT ONE Administration Ibuprofen Confirm 04/23/19 12:45 Motrin 600 Mg Administered 04/23/19 12:46 Dose 600 mg .ROUTE .STK-MED ONE Oxycodone/Acetaminophen 1 tab 04/23/19 12:37 04/23/19 12:46 Percocet Tablet 5/325mg PO 04/23/19 12:38 1 tab STAT ONE Administration Oxycodone/Acetaminophen Confirm 04/23/19 12:44 Percocet Tablet 5/325mg Administered 04/23/19 12:45 Dose 1 tab .ROUTE .STK-MED ONE - Progress Progress: improved Progress Note: 04/23/19 14:01 Patient improved with Tylenol and ibuprofen. Most likely cellulitis. X-ray shows no infection. Very low suspicion for joint infection, septic joint. Patient will need follow-up with PCP in 24 to 48 hours for recheck. Return here for new or changing symptoms. - Departure Departure Disposition: Home Clinical Impression: Cellulitis Condition: Stable Critical Care Time: No Referrals: CARL CORONEL [Primary Care Provider] - Instructions: Chronic Pain (DC) Prescriptions: Doxycycline Hyclate 100 mg [Vibramycin 100 MG] 100 mg PO BID #14 tab
[2019-04-23 13:57] VITALS: BP 131/58; PULSE 67
[2019-04-23 14:02] VITALS: O2SAT 98
== END 2019-04-23 13:45 | disposition home or self-care (01) ==
LOC: ED 11:54
DX: L03.116 Cellulitis of left lower limb (principal); M25.572 Pain in left ankle and joints of left foot; J44.9 Chronic obstructive pulmonary disease, unspecified; E78.00 Pure hypercholesterolemia, unspecified; I73.9 Peripheral vascular disease, unspecified; I10 Essential (primary) hypertension; Z79.899 Other long term (current) drug therapy; Z86.010 Personal history of colon polyps
CPT/HCPCS: 73610; 99283; A9270-GY

== ENCOUNTER 2022-03-18 16:01 | Emergency (ER) | payer MEDICARE ==
[2022-03-18 16:37] VITALS: O2SAT 93
[2022-03-18] MEDS ORDERED: TYLENOL EXTRA STRENGTH 500 MG PO ONE (16:38)
[2022-03-18] MEDS ORDERED: TYLENOL EXTRA STRENGTH 500 MG ONE (16:39)
[2022-03-18 17:01] LABS: Absolute Neutrophil Ct (ANC) 6.98 x10^3/uL (1.4-6.9); BASOPHIL % 0.4 % (0.0-0.4); Basophil (Absolute #) 0.03 x10^3/uL (0-0.4); Eosinophil % 0.1 % (0.00-5.0); Eosinophil (Absolute #) 0.01 x10^3/uL (0-0.5); Hematocrit 42.1 % (35-47); Hemoglobin 13.5 g/dL (12.0-16.0); IMMATURE GRAN # 0.02 x10^3u/L (0.00-0.03); IMMATURE GRAN % 0.2 % (0.00-0.4); Lymphocyte (Absolute #) 0.54 x10^3/uL (1.0-4.6); Lymphocytes % 6.7 % (24.0-44.0); Mean Cell Volume 85.9 fL (78-100); Mean Corpuscular Hemoglobin 27.6 pg (26-32); Mean Corpuscular Hgb Concent. 32.1 g/dL (32-36); Mean Platelet Volume 9.2 fL (7.5-11.0); Monocyte (Absolute #) 0.48 x10^3/uL (0.0-1.3); Neutrophil % 86.6 % (36.0-66.0); Platelet Count 182 x10^3/uL (150-450); Red Cell Distribution Width 14.8 % (11.5-14.0); White Blood Count 8.1 x10^3/uL (4.0-10.5)
[2022-03-18 17:16] LABS: PROTIME 10.6 SECONDS (9.4-12.5); PTT 27.4 SECONDS (25.1-36.5)
[2022-03-18 17:22] LABS: ALBUMIN 4.1 g/dL (3.5-5.0); ALKALINE PHOSPHATASE 71 U/L (38-126); ANION GAP 10.7 MEQ/L (5-15); BLOOD UREA NITROGEN 19 mg/dL (7-17); CHLORIDE 102 mmol/L (98-107); Calcium 9.5 mg/dL (8.4-10.2); Carbon Dioxide 29 mmol/L (22-30); Creatinine 1 0.92 mg/dL (0.52-1.04); EST GLOMERULAR FILTRATION RATE > 60.0 ML/MIN; Glucose 112 mg/dL (74-106); NT PRO BNP 788 pg/mL (0-1800); Potassium 3.9 mmol/L (3.5-5.1); SGOT/AST 21 U/L (14-36); SGPT/ALT 18 U/L (0-35); SODIUM 138 mmol/L (137-145); Total Protein 6.8 g/dL (6.3-8.2)
[2022-03-18 17:54] LABS: INFLUENZA A NEGATIVE (NEGATIVE); INFLUENZA B NEGATIVE (NEGATIVE); RESPIRATORY SYNCTIAL VIRUS NEGATIVE (Negative)
--- NOTE | 2022-03-18 18:21 | ERPHSYRPT ---
- History of Present Illness Source: patient Exam Limitations: no limitations Patient Subjective Stated Complaint: PT BROUGHT IN BY DAUGHTER FOR FOR TESTING POSITIVE FOR COVID AND WOULD LIKE TO SEE IF CAN BE STARTED ON ANY COVID MEDS Triage Nursing Assessment: PT ALERT, ARRIVED PER WC, RESP EASY, NO COUGH, CO HEADACHE, TYLENOL LAST AT 0700. SHE ALSO CO SOME [place] BUT ABLE TO DRINK, SKIN W/D/P. ABD SOFT Physician History: 81 yo wf w +home CV19 test today presents w headache x 1 day, coryza x 2wks,nausea, and mild diarrhea. She denies vomiting, melena,hematochezia, and chest pain. Timing/Duration: other (1day for headache/2 wks for coryza) Activities at Onset: rest Severity of Dyspnea-Max: mild Severity of Dyspnea-Current: mild Possible Cause: occasional episodes Modifying Factors: Improves With: activity, coughing, rest Associated Symptoms: denies symptoms, No productive cough Allergies/Adverse Reactions: No Known Drug Allergies Allergy (Verified 03/18/22 16:22) Home Medications: Albuterol 17 gm IH DAILY PRN PRN 09/16/12 [History] Aspirin [Baby Aspirin] 81 mg PO DAILY 09/16/12 [History] Atorvastatin Calcium 40 mg PO DAILY 09/16/12 [History] Diltiazem HCl 240 mg [Cardizem CD 240 MG] 240 mg PO DAILY 09/16/12 [History] Docusate Sodium [Stool Softener] 100 mg PO DAILY 09/16/12 [History] Fluticasone/Salmeterol [Advair Hfa 115-21 Mcg Inhaler] 8 gm IH BID 09/16/12 [History] Ipratropium/Albuterol Sulfate [Combivent Inhaler] 15 gm IH BID 09/16/12 [History] Triamterene/Hydrochlorothiazid [Triamterene-Hctz 75-50 mg Tab] 1 each PO DAILY 09/16/12 [History] Calcium Carb, Citrate/Vit D3 [Calcium + D3 ER Tablet] 1 tab PO BID 05/17/18 [History] Hx Tetanus, Diphtheria Vaccination/Date Given: Yes Hx Influenza Vaccination/Date Given: Yes Hx Pneumococcal Vaccination/Date Given: Yes Immunizations Up to Date: Yes Travel Risk - International Travel Have you traveled outside of the country in past 3 weeks: No - Coronavirus Screening Symptoms: Fever, Vomiting/Diarrhea, Headaches/Body Aches/Fatigue - Vaccine Status Have you recieved a Covid-19 vaccination: Yes 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 Dates if Unknown: ? - Review of Systems Constitutional: No Symptoms, Fever, Chills Eyes: No Symptoms Ears, Nose, & Throat: No Symptoms, Nose Congestion, Nose Discharge Respiratory: No Symptoms, Cough Cardiac: No Symptoms Abdominal/Gastrointestinal: No Symptoms, Nausea, Diarrhea Genitourinary Symptoms: No Symptoms Musculoskeletal: No Symptoms Skin: No Symptoms Neurological: No Symptoms Psychological: No Symptoms Endocrine: No Symptoms, Excessive Sweating Immunological/Allergic: No Symptoms - Past Medical History Pertinent Past Medical History: Yes Neurological History: No Pertinent History ENT History: Cataracts Cardiac History: High Cholesterol, Hypertension, Myocardial Infarction ([place]), Peripheral Vascular Disease Respiratory History: COPD Endocrine Medical History: No Pertinent History Musculoskeletal History: Arthritis, Fractures GI Medical History: Hemorrhoids, Polyps History: No Pertinent History Psycho-Social History: No Pertinent History Female Reproductive Disorders: No Pertinent History Other Medical History: colonoscopy 5-[address] Coronel, broken toes - Past Surgical History Past Surgical History: Yes Neuro Surgical History: No Pertinent History Cardiac: Cardiac Catheterization Respiratory: No Pertinent History Gastrointestinal: No Pertinent History Genitourinary: No Pertinent History Musculoskeletal: Other Female Surgical History: Hysterectomy, Other Other Surgical History: 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", colonoscopy with polyectomy 5-6 yrs ago, some broken toes,two breast left,biopsy - Social History Smoking Status: Former smoker Exposure to second hand smoke: No Drug Use: none Patient Lives Alone: No - Nursing Vital Signs Nursing Vital Signs: Initial Vital Signs Respiratory Rate 20 03/18/22 16:36 O2 Sat by Pulse Oximetry 93 L 03/18/22 16:36 Pain Scale Pain Intensity 5 Borderline O2 saturation - Physical Exam General Appearance: no apparent distress Eye Exam: PERRL/EOMI, eyes nml inspection Ears, Nose, Throat Exam: hearing grossly normal, normal ENT inspection, normal pharynx Neck Exam: normal inspection, non-tender, supple, full range of motion, No Brudzinski, No Kernig's, No meningismus, No carotid bruit Respiratory Exam: airway intact, crackles/rales (Faint dry rales at R base, but overall clear), No respiratory distress, No prolonged expirations Cardiovascular/Chest Exam: normal heart sounds, regular rate/rhythm, normal peripheral pulses, No murmur Abdominal/Gastrointestinal Exam: soft, normal bowel sounds, No tenderness Extremity Exam: non-tender, normal range of motion, normal inspection, normal capillary refill Peripheral Pulses Exam: carotid (R): 2+, carotid (L): 2+ Neurologic Exam: alert, oriented x 3, cooperative, director product development II-XII nml as tested, normal mood/affect, nml cerebellar function, nml station & gait, sensation nml Skin Exam: normal color, warm, dry, No rash Lymphatic Exam: No adenopathy SpO2 Interpretation: borderline oxygenation SpO2: 93 O2 Delivery: Nasal Cannula - Course Nursing assessment & vital signs reviewed: Yes EKG Interpreted by Me: RATE (NSR/Rate92/Normal QT-QTc/Poor R wave progre ssion/Non-specific ST-Twave changes) - Radiology Exams Chest X-ray Interpretation: Interpreted by me (CXR neg per Rad) Ordered Tests: Active Orders 24 hr Category Date Time Status EKG-ER Only STAT Care 03/18/22 16:36 Active CHEST 1 VIEW (PORTABLE) Stat Exams 03/18/22 17:04 Taken CBC W DIFF Stat Lab 03/18/22 16:58 Completed CMP Stat Lab 03/18/22 16:58 Completed Lactic Acid Stat Lab 03/18/22 16:36 Completed NT PRO BNP Stat Lab 03/18/22 16:58 Completed PROTIME WITH INR Stat Lab 03/18/22 16:58 Completed PTT Stat Lab 03/18/22 16:58 Completed TROPONIN Q4H Lab 03/18/22 16:58 Completed TROPONIN Q4H Lab 03/18/22 20:45 Ordered TROPONIN Q4H Lab 03/19/22 00:45 Ordered UA W/RFX UR CULTURE Stat Lab 03/18/22 16:36 Ordered Medication Summary Discontinued Medications Generic Name Dose Route Start Last Admin Trade Name Freq PRN Reason Stop Dose Admin Acetaminophen 1,000 mg 03/18/22 16:38 03/18/22 16:39 Acetaminophen 500 Mg Tablet PO 03/18/22 16:39 1,000 mg STAT ONE Administration Acetaminophen Confirm 03/18/22 16:39 Acetaminophen 500 Mg Tablet Administered 03/18/22 16:40 Dose 1,000 mg .ROUTE .K-MED ONE Lab/Rad Data: Laboratory Result Diagrams 03/18/22 16:58 03/18/22 16:58 Laboratory Results 03/18/22 03/18/22 03/18/22 Range/Units Unknown 16:58 16:58 WBC (4.0-10.5) x10^3/uL RBC (4.1-5.4) x10^6/uL Hgb (12.0-16.0) g/dL Hct (35-47) % MCV (78-100) fL MCH (26-32) pg MCHC (32-36) g/dL RDW (11.5-14.0) % Plt Count (150-450) x10^3/uL MPV (7.5-11.0) fL Gran % (36.0-66.0) % Immature Gran % (Auto) (0.00-0.4) % Nucleat RBC Rel Count (0.00-0.1) % Eos # (Auto) (0-0.5) x10^3/uL Immature Gran # (Auto) (0.00-0.03) x10^3u/L Absolute Lymphs (auto) (1.0-4.6) x10^3/uL Absolute Monos (auto) (0.0-1.3) x10^3/uL Absolute Nucleated RBC (0.00-0.01) x10^3u/L Lymphocytes % (24.0-44.0) % Monocytes % (0.0-12.0) % Eosinophils % (0.00-5.0) % Basophils % (0.0-0.4) % Absolute Granulocytes (1.4-6.9) x10^3/uL Basophils # (0-0.4) x10^3/uL PT 10.6 (9.4-12.5) SECONDS INR 1.00 (0.8-3.0) APTT 27.4 (25.1-36.5) SECONDS Sodium (137-145) mmol/L Potassium (3.5-5.1) mmol/L Chloride (98-107) mmol/L Carbon Dioxide (22-30) mmol/L Anion Gap (5-15) MEQ/L BUN (7-17) mg/dL Creatinine (0.52-1.04) mg/dL Estimated GFR ML/MIN Glucose (74-106) mg/dL Lactic Acid (0.4-2.0) Calcium (8.4-10.2) mg/dL Total Bilirubin (0.2-1.3) mg/dL AST (14-36) U/L ALT (0-35) U/L Alkaline Phosphatase (38-126) U/L Troponin I < 0.012 (0.000-0.034) ng/mL NT-Pro-B Natriuret Pep (0-1800) pg/mL Serum Total Protein (6.3-8.2) g/dL Albumin (3.5-5.0) g/dL Influenza Type A Ag NEGATIVE (NEGATIVE) Influenza Type B Ag NEGATIVE (NEGATIVE) RSV (PCR) NEGATIVE (Negative) SARS-CoV-2 (PCR) POSITIVE A (NEGATIVE) 03/18/22 03/18/22 03/18/22 Range/Units 16:58 16:58 16:36 WBC 8.1 (4.0-10.5) x10^3/uL RBC 4.90 (4.1-5.4) x10^6/uL Hgb 13.5 (12.0-16.0) g/dL Hct 42.1 (35-47) % MCV 85.9 (78-100) fL MCH 27.6 (26-32) pg MCHC 32.1 (32-36) g/dL RDW 14.8 H (11.5-14.0) % Plt Count 182 (150-450) x10^3/uL MPV 9.2 (7.5-11.0) fL Gran % 86.6 H (36.0-66.0) % Immature Gran % (Auto) 0.2 (0.00-0.4) % Nucleat RBC Rel Count 0.0 (0.00-0.1) % Eos # (Auto) 0.01 (0-0.5) x10^3/uL Immature Gran # (Auto) 0.02 (0.00-0.03) x10^3u/L Absolute Lymphs (auto) 0.54 L (1.0-4.6) x10^3/uL Absolute Monos (auto) 0.48 (0.0-1.3) x10^3/uL Absolute Nucleated RBC 0.00 (0.00-0.01) x10^3u/L Lymphocytes % 6.7 L (24.0-44.0) % Monocytes % 6.0 (0.0-12.0) % Eosinophils % 0.1 (0.00-5.0) % Basophils % 0.4 (0.0-0.4) % Absolute Granulocytes 6.98 H (1.4-6.9) x10^3/uL Basophils # 0.03 (0-0.4) x10^3/uL PT (9.4-12.5) SECONDS INR (0.8-3.0) APTT (25.1-36.5) SECONDS Sodium 138 (137-145) mmol/L Potassium 3.9 (3.5-5.1) mmol/L Chloride 102 (98-107) mmol/L Carbon Dioxide 29 (22-30) mmol/L Anion Gap 10.7 (5-15) MEQ/L BUN 19 H (7-17) mg/dL Creatinine 0.92 (0.52-1.04) mg/dL Estimated GFR > 60.0 ML/MIN Glucose 112 H (74-106) mg/dL Lactic Acid 0.9 (0.4-2.0) Calcium 9.5 (8.4-10.2) mg/dL Total Bilirubin 0.50 (0.2-1.3) mg/dL AST 21 (14-36) U/L ALT 18 (0-35) U/L Alkaline Phosphatase 71 (38-126) U/L Troponin I (0.000-0.034) ng/mL NT-Pro-B Natriuret Pep 788 (0-1800) pg/mL Serum Total Protein 6.8 (6.3-8.2) g/dL Albumin 4.1 (3.5-5.0) g/dL Influenza Type A Ag (NEGATIVE) Influenza Type B Ag (NEGATIVE) RSV (PCR) (Negative) SARS-CoV-2 (PCR) (NEGATIVE) - Progress Air Movement: good Progress Note: 03/18/22 18:40 Nursing note and vital signs reviewed No food or housing insecurities noted All labs reviewed and shared w pt CXR neg per ER read Pt in NAD w overall clear lungs during stay and in no respiratory distress Sats good during entire stay Pt wo renal failure, so Paxlovid started Counseled pt/family regarding: lab results, diagnosis, need for follow-up, rad results - Departure Departure Disposition: Home Clinical Impression: COVID-19 Condition: Stable Critical Care Time: No Referrals: CARL CORONEL [Primary Care Provider] - Follow up/PCP as directed Instructions: Cough, Adult (DC), COVID-19 (DC) Additional Instructions: Start Paxlovid in the morning Follow up with your family MD in 1-2 days Get a pulse oximeter and monitor your oxygen saturation 2-3 times a day Return to ER for persistent oxygen saturation less than 90% Prescriptions: Nirmatrelvir/Ritonavir [Paxlovid 2X150 mg-100 mg (Eua)] 1 each PO BID #30 tablet
[2022-03-18 18:24] LABS: SARS-CoV-2 Xpert Express POSITIVE (NEGATIVE)
[2022-03-18 19:20] VITALS: BP 155/87; PULSE 80
--- NOTE | 2022-03-18 20:29 | XRAY ---
Indication: Fever and cough. Positive Covid 19. Comparison: September 14, 2018 Portable chest again demonstrates minimal bibasilar discoid atelectasis/scarring. Remaining heart and upper lungs unremarkable. Bony thorax intact again with osteopenia and mild degenerative changes. No new/acute findings.
== END 2022-03-18 19:38 | disposition home or self-care (01) ==
LOC: ED 16:01
DX: U07.1 COVID-19 (principal); R51.9 Headache, unspecified; R09.81 Nasal congestion; R11.0 Nausea; R19.7 Diarrhea, unspecified; E78.5 Hyperlipidemia, unspecified; I10 Essential (primary) hypertension; Z79.899 Other long term (current) drug therapy
CPT/HCPCS: 0241U; 36415; 71045; 80053; 83605; 83880; 84484; 85025; 85610; 85730; 93005; 99283; A9270-GY

== ENCOUNTER 2022-03-19 20:36 | Observation (INO) | payer MEDICARE ==
[2022-03-19] MEDS ORDERED: Sodium Chloride 0.9% 1000 ML 1,000 ML IV SCH (21:15)
[2022-03-19] MEDS ORDERED: Sodium Chloride 0.9% 1000 ML 1,000 ML ONE (21:18)
[2022-03-19 21:19] LABS: BASOPHIL % 0.6 % (0.0-0.4); Basophil (Absolute #) 0.04 x10^3/uL (0-0.4); Eosinophil % 0.4 % (0.00-5.0); Eosinophil (Absolute #) 0.03 x10^3/uL (0-0.5); Hematocrit 39.9 % (35-47); Hemoglobin 12.7 g/dL (12.0-16.0); IMMATURE GRAN # 0.02 x10^3u/L (0.00-0.03); IMMATURE GRAN % 0.3 % (0.00-0.4); Lymphocyte (Absolute #) 0.92 x10^3/uL (1.0-4.6); Lymphocytes % 13.1 % (24.0-44.0); Mean Cell Volume 86.9 fL (78-100); Mean Corpuscular Hemoglobin 27.7 pg (26-32); Mean Corpuscular Hgb Concent. 31.8 g/dL (32-36); Mean Platelet Volume 9.8 fL (7.5-11.0); Monocyte (Absolute #) 0.73 x10^3/uL (0.0-1.3); Monocytes % 10.4 % (0.0-12.0); Neutrophil % 75.2 % (36.0-66.0); Platelet Count 196 x10^3/uL (150-450); Red Blood Count 4.59 x10^6/uL (4.1-5.4); Red Cell Distribution Width 14.9 % (11.5-14.0)
[2022-03-19 22:28] LABS: ALKALINE PHOSPHATASE 77 U/L (38-126); BLOOD UREA NITROGEN 29 mg/dL (7-17); CHLORIDE 103 mmol/L (98-107); Calcium 9.2 mg/dL (8.4-10.2); Carbon Dioxide 27 mmol/L (22-30); Creatinine 1 1.06 mg/dL (0.52-1.04); EST GLOMERULAR FILTRATION RATE 52.6 ML/MIN; Glucose 111 mg/dL (74-106); Potassium 3.8 mmol/L (3.5-5.1); SGOT/AST 24 U/L (14-36); SGPT/ALT 17 U/L (0-35); SODIUM 134 mmol/L (137-145); TROPONIN < 0.012 ng/mL (0.000-0.034)
[2022-03-19 22:43] LABS: INFLUENZA A NEGATIVE (NEGATIVE); INFLUENZA B NEGATIVE (NEGATIVE); RESPIRATORY SYNCTIAL VIRUS NEGATIVE (Negative)
[2022-03-19] MEDS ORDERED: BABY ASPIRIN 81 MG CHEW PO ONE (23:08)
--- NOTE | 2022-03-19 23:08 | ERPHSYRPT ---
- History of Present Illness Time Seen by Provider: 03/19/22 21:00 Source: patient Exam Limitations: no limitations Patient Subjective Stated Complaint: family states that patient had an episode around 2000 tonight of confusion and difficulty speaking. pt states she thinks it lasted around 10 minutes and then she went back to her normal. Triage Nursing Assessment: pt alert and oriented, answers questions approp. pt transfers self from wheelchair to bed without diff. pupils equal and reactive. bilat upper and lower ext strength equal and wnl. Physician History: Patient 31-year-old female presents to ED for evaluation of possible TIA/stroke. At approximately 8 PM patient was at home talking to her son on the phone. He observed patient appeared confused. She was having difficulty speaking. Patient's symptoms lasted for approximately 10 minutes before resolving. Upon arrival to our ED patient was back to her baseline. No headache. No nausea vomiting or diaphoresis. No numbness tingling or weakness. No chest pain or shortness of breath. Symptoms were transient. Patient feels well at this time. She voices no other complaints or concerns at this time. She denies a history of the same. Patient is COVID-positive Portions of this note were created with voice recognition technology. There may be grammatical, spelling, punctuation or sound alike errors Timing/Duration: today Severity: moderate Modifying Factors: Improves With: nothing Associated Symptoms: denies symptoms Allergies/Adverse Reactions: No Known Drug Allergies Allergy (Verified 03/19/22 21:08) Home Medications: Aspirin [Baby Aspirin] 81 mg PO DAILY 09/16/12 [History] Atorvastatin Calcium 40 mg PO DAILY 09/16/12 [History] Diltiazem HCl 240 mg [Cardizem CD 240 MG] 240 mg PO DAILY 09/16/12 [History] Fluticasone/Salmeterol [Advair Hfa 115-21 Mcg Inhaler] 8 gm IH BID 09/16/12 [History] Ipratropium/Albuterol Sulfate [Combivent Inhaler] 15 gm IH BID 09/16/12 [Hi story] Alendronate Sodium 70 mg PO WEEKLY 03/19/22 [History] Calcium Carbonate [Calcium] 600 mg PO BID 03/19/22 [History] Hx Tetanus, Diphtheria Vaccination/Date Given: Yes Hx Influenza Vaccination/Date Given: Yes Hx Pneumococcal Vaccination/Date Given: Yes Immunizations Up to Date: Yes Travel Risk - International Travel Have you traveled outside of the country in past 3 weeks: No - Coronavirus Screening Are you exhibiting any of the following symptoms?: Yes Symptoms: Fever, Cough: New Onset Close contact with a COVID-19 positive Pt in past 14-21 Days: Yes - Vaccine Status Have you recieved a Covid-19 vaccination: Yes 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 Dates if Unknown: ? - Review of Systems Constitutional: No Symptoms, No Fever, No Chills Eyes: No Symptoms Ears, Nose, & Throat: No Symptoms Respiratory: No Symptoms, No Cough, No Dyspnea Cardiac: No Symptoms, No Chest Pain, No Edema, No Syncope Abdominal/Gastrointestinal: No Symptoms, No Abdominal Pain, No Nausea, No Vomiting, No Diarrhea Genitourinary Symptoms: No Symptoms, No Dysuria Musculoskeletal: No Symptoms, No Back Pain, No Neck Pain Skin: No Symptoms, No Rash Neurological: No Symptoms, No Dizziness, No Focal Weakness, No Sensory Changes Psychological: No Symptoms Endocrine: No Symptoms Hematologic/Lymphatic: No Symptoms Immunological/Allergic: No Symptoms All Other Systems: Reviewed and Negative - Past Medical History Pertinent Past Medical History: Yes Neurological History: No Pertinent History ENT History: Cataracts Cardiac History: High Cholesterol, Hypertension, Myocardial Infarction ([place]), Peripheral Vascular Disease Respiratory History: COPD Endocrine Medical History: No Pertinent History Musculoskeletal History: Arthritis, Fractures GI Medical History: Hemorrhoids, Polyps History: No Pertinent History Psycho-Social History: No Pertinent History Female Reproductive Disorders: No Pertinent History Other Medical History: colonoscopy 5-[address] Coronel, broken toes - Past Surgical History Past Surgical History: Yes Neuro Surgical History: No Pertinent History Cardiac: Cardiac Catheterization Respiratory: No Pertinent History Gastrointestinal: No Pertinent History Genitourinary: No Pertinent History Musculoskeletal: Other Female Surgical History: Hysterectomy, Other Other Surgical History: 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", colonoscopy with polyectomy 5-6 yrs ago, some broken toes,two breast left,biopsy - Social History Smoking Status: Former smoker Exposure to second hand smoke: No Drug Use: none Patient Lives Alone: No - Nursing Vital Signs Nursing Vital Signs: Initial Vital Signs Temperature 98.6 F 03/19/22 20:52 Pulse Rate 71 03/19/22 20:52 Respiratory Rate 18 03/19/22 20:52 Blood Pressure 163/74 03/19/22 20:52 O2 Sat by Pulse Oximetry 94 L 03/19/22 20:52 Pain Scale Pain Intensity 0 - Physical Exam General Appearance: no apparent distress, alert Eye Exam: PERRL/EOMI, eyes nml inspection Ears, Nose, Throat Exam: normal ENT inspection, TMs normal, pharynx normal, moist mucous membranes Neck Exam: normal inspection, non-tender, supple, full range of motion Respiratory Exam: normal breath sounds, lungs clear, No respiratory distress Cardiovascular Exam: regular rate/rhythm, normal heart sounds, normal peripheral pulses Gastrointestinal/Abdomen Exam: soft, normal bowel sounds, No tenderness, No mass Back Exam: normal inspection, normal range of motion, No CVA tenderness, No vertebral tenderness Extremity Exam: normal inspection, normal range of motion, pelvis stable Neurologic Exam: alert, oriented x 3, cooperative, normal mood/affect, nml cerebellar function, nml station & gait, sensation nml, No motor deficits Skin Exam: normal color, warm, dry, No rash Lymphatic Exam: No adenopathy SpO2 Interpretation: normal SpO2: 92 O2 Delivery: Room Air - Course Nursing assessment & vital signs reviewed: Yes EKG Interpreted by Me: RATE (69), NORMAL AXIS, Left [place] Deviation (Ectopic atrial rhythm.), NORMAL INTERVALS - CT Exams Head CT Interpretation: Tele-radiologist Report (No comps. Complete opacification of the left maxillary sinus with periosteal thickening favoring chronic sinusitis. 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 STAT Care 03/19/22 21:03 Active EKG-ER Only STAT Care 03/19/22 21:03 Active IV Insertion STAT Care 03/19/22 21:03 Active Pulse Oximetry (ED) STAT Care 03/19/22 21:03 Active HEAD WITHOUT CONTRAST [CT] Stat Exams 03/19/22 21:04 Taken CBC W DIFF Stat Lab 03/19/22 21:03 Completed CMP Stat Lab 03/19/22 21:45 Completed TROPONIN Q4H Lab 03/20/22 01:15 Ordered TROPONIN Q4H Lab 03/20/22 05:15 Ordered TROPONIN Stat Lab 03/19/22 21:45 Completed Urine Triage Profile Stat Lab 03/19/22 22:24 Ordered Medication Summary Generic Name Dose Route Start Last Admin Trade Name Vira PRN Reason Stop Dose Admin Sodium Chloride 1,000 mls @ 100 mls/hr 03/19/22 21:15 03/19/22 21:18 Sodium Chloride 0.9% 1000 Ml IV 04/18/22 21:14 100 mls/hr .Q10H JIMBO Administration Lab/Rad Data: Laboratory Result Diagrams 03/19/22 21:03 03/19/22 21:45 Laboratory Results 03/19/22 03/19/22 Range/Units 21:45 21:03 WBC 7.0 (4.0-10.5) x10^3/uL RBC 4.59 (4.1-5.4) x10^6/uL Hgb 12.7 (12.0-16.0) g/dL Hct 39.9 (35-47) % MCV 86.9 (78-100) fL MCH 27.7 (26-32) pg MCHC 31.8 L (32-36) g/dL RDW 14.9 H (11.5-14.0) % Plt Count 196 (150-450) x10^3/uL MPV 9.8 (7.5-11.0) fL Gran % 75.2 H (36.0-66.0) % Immature Gran % (Auto) 0.3 (0.00-0.4) % Nucleat RBC Rel Count 0.0 (0.00-0.1) % Eos # (Auto) 0.03 (0-0.5) x10^3/uL Immature Gran # (Auto) 0.02 (0.00-0.03) x10^3u/L Absolute Lymphs (auto) 0.92 L (1.0-4.6) x10^3/uL Absolute Monos (auto) 0.73 (0.0-1.3) x10^3/uL Absolute Nucleated RBC 0.00 (0.00-0.01) x10^3u/L Lymphocytes % 13.1 L (24.0-44.0) % Monocytes % 10.4 (0.0-12.0) % Eosinophils % 0.4 (0.00-5.0) % Basophils % 0.6 (0.0-0.4) % Absolute Granulocytes 5.30 (1.4-6.9) x10^3/uL Basophils # 0.04 (0-0.4) x10^3/uL Sodium 134 L (137-145) mmol/L Potassium 3.8 (3.5-5.1) mmol/L Chloride 103 (98-107) mmol/L Carbon Dioxide 27 (22-30) mmol/L Anion Gap 8.0 (5-15) MEQ/L BUN 29 H (7-17) mg/dL Creatinine 1.06 H (0.52-1.04) mg/dL Estimated GFR 52.6 ML/MIN Glucose 111 H (74-106) mg/dL Calcium 9.2 (8.4-10.2) mg/dL Total Bilirubin 0.40 (0.2-1.3) mg/dL AST 24 (14-36) U/L ALT 17 (0-35) U/L Alkaline Phosphatase 77 (38-126) U/L Troponin I < 0.012 (0.000-0.034) ng/mL Serum Total Protein 7.0 (6.3-8.2) g/dL Albumin 4.0 (3.5-5.0) g/dL - Progress Progress: improved Progress Note: Patient is a 81-year-old female presents for emergency department for evaluation of TIA. Patient was speaking to her son and became confused and unable to produce a meaningful sentence. Symptoms lasted for about [address] head negative for acute intracranial pathology. Physical exam unremarkable. Patient was asymptomatic upon presentation to our ED. Patient's complaint is acute. Complexity of problem is moderate. No significant comorbidities to complicate today's presentation. Testing ordered was EKG which I reviewed personally. No atrial fibrillation. CT head negative as described above. CBC CMP. Patient is known COVID-positive. Troponin negative. Urinalysis negative. Patient took 1 aspirin this morning. Patient received 3 aspirin this evening. Normal saline running at 100 cc an hour. The findings of today's work-up was used for medical decision making. Case discussed with Dr. Abebe who accepts admission to observation. Plan of care discussed with patient. She agrees to admission [facility] for further evaluation and treatment. Level of EM service provided was moderate. Complexity of problem addressed is moderate. Complexity of data reviewed and analyzed is moderate. Risk of complication and or risk of morbidity/mortality of patient management is low. No critical care time. Patient served as an independent historian. Although patient's daughter at bedside provided significant information to HPI. Time spent for final disposition approximately 15 minutes. Portions of this note were created with voice recognition technology. There may be grammatical, spelling, punctuation or sound alike errors 03/19/22 23:[address] Korina Will see patient in: hospital (observation) Counseled pt/family regarding: lab results, diagnosis, rad results - Departure Departure Disposition: Observation Clinical Impression: Chronic sinusitis, TIA (transient ischemic attack) Condition: Stable Critical Care Time: No Referrals: CARL CORONEL [Primary Care Provider] - Follow up/PCP as directed
[2022-03-19 23:26] LABS: SARS-CoV-2 Xpert Express POSITIVE (NEGATIVE)
[2022-03-19 23:42] LABS: Amphetamine,Urine NEGATIVE (NEGATIVE); Barbiturate,Urine NEGATIVE (NEGATIVE); Benzodiazepine,Urine NEGATIVE (NEGATIVE); Cocaine,Urine NEGATIVE (NEGATIVE); Methadone,Urine NEGATIVE (NEGATIVE); Opiate,Urine NEGATIVE (NEGATIVE); PCP,Urine NEGATIVE (NEGATIVE); THC,Urine NEGATIVE (NEGATIVE)
[2022-03-20] MEDS ORDERED: MILK OF MAGNESIA 30 ML PO PRN (00:38)
[2022-03-20] MEDS ORDERED: Senokot-S Tablet PO PRN (00:38)
[2022-03-20] MEDS ORDERED: MAALOX ES 30 ML UNIT DOSE PO PRN (00:38)
[2022-03-20] MEDS ORDERED: Zofran 4 MG/2 ML VIAL IV PRN (00:38)
[2022-03-20] MEDS: TYLENOL 325 MG PO PRN ×2 (04:45→13:49)
[2022-03-20] MEDS ORDERED: Sodium Chloride 0.9% 1000 ML 0 ML ONE (05:12)
[2022-03-20 06:33] LABS: Risk Ratio 3.1
[2022-03-20] MEDS ORDERED: DUONEB 0.5-3 MG/3 ml Neb IH SCH (07:00)
[2022-03-20] MEDS ORDERED: Advair Hfa 115/21 Common canister IH SCH (07:00)
--- NOTE | 2022-03-20 08:31 | XRAY ---
Indication: Confusion. Stroke. Multiple contiguous axial images obtained through the head without contrast. Comparison: None Age-appropriate global atrophy and minimal periventricular degenerative micro-ischemia bilaterally. No acute intracranial hemorrhage, abnormal extra-axial fluid collection, or mass effect. Fourth ventricle is midline without hydrocephalus. Young-white matter differentiation preserved. Bony calvarium intact. Complete opacification of left maxillary sinus with periosteal thickening favoring chronic sinusitis. Mastoid air cells are clear. Impression: Atrophy and degenerative micro-ischemia within normal limits for patient's age. Chronic left maxillary sinusitis. No acute intracranial abnormalities.
[2022-03-20 11:37] VITALS: PULSE 84
[2022-03-20] MEDS ORDERED: NON-FORMULARY ITEM (Ipratropium/Albuterol Sulfate [Combivent Inhaler] 14.7 GM Aer.W.Adap) IH SCH (12:45)
[2022-03-20] MEDS ORDERED: ECOTRIN 81 MG PO SCH (13:00)
[2022-03-20] MEDS ORDERED: MEDICATION INTERVENTION MC SCH (13:00)
[2022-03-20] MEDS ORDERED: Cardizem CD PO SCH (13:00)
[2022-03-20] MEDS ORDERED: PATIENT OWN MEDICATION PO SCH (13:00)
[2022-03-20] MEDS ORDERED: Calcium 500MG W/Vit D Tablet PO SCH (13:00)
--- NOTE | 2022-03-20 14:46 | XRAY ---
Indication: Stroke. Sagittal, coronal, and axial MRI brain performed without contrast using T1, T2, FLAIR, diffusion, and ADC sequences. Comparison: None Age-appropriate global atrophy and minimal periventricular degenerative micro-ischemia signal bilaterally. No acute intracranial hemorrhage, abnormal extra-axial fluid collection, or mass effect. Diffusion images are negative for restricted signal. Fourth ventricle is midline without hydrocephalus. 7/8 cranial nerve complex bilaterally symmetric. Normal flow void signal within the major intracerebral circulation. Normal appearing craniocervical junction and sella turcica. Complete opacification left maxillary sinus. Impression: 1. Atrophy and degenerative micro-ischemia within normal limits for patient's age. 2. No acute intracranial abnormalities or evidence for evolving large vessel territorial stroke. 3. Incidental left maxillary sinus disease.
--- NOTE | 2022-03-20 15:00 | XRAY ---
Indication: Stroke. Multi-slab 3-D [id number] MRA [place] performed. Comparison: None Distal internal carotid arteries are bilaterally symmetric without critical stenosis or obstruction. Normal carotid terminus with normal branching A1 and M1 segments bilaterally. Visualized left/right anterior cerebral, left/right middle cerebral, anterior communicating, and left/right posterior communicating arteries are normal MRA appearance bilaterally. Posterior circulation demonstrates normal MRA appearance to the distal left/right vertebral, basilar, left/right posterior cerebral, and left/right superior cerebellar arteries. Impression: Normal MRA [place].
--- NOTE | 2022-03-20 15:42 | XRAY ---
Indication: Stroke. Multislide 3-D [id number] MRA carotid arteries of the neck performed. Comparison: None Visualized right common carotid artery, carotid bulb, and visualized internal carotid arteries are normal in MRA appearance. Mid to proximal external carotid artery demonstrates minimal eccentric plaquing without critical stenosis/obstruction. Visualized right common carotid artery demonstrates very minimal eccentric plaquing without critical stenosis/obstruction. Remaining carotid bulb, internal carotid, and external carotid arteries are normal in MRA appearance. Visualized vertebral arteries are bilaterally symmetric without critical stenosis or obstruction. Impression: Minimal eccentric plaquing in the right external carotid and left common carotid arteries without critical stenosis/obstruction. Remaining MRA carotid arteries of the neck is negative.
[2022-03-20] MEDS ORDERED: FLUTICASONE-SALMETEROL 250-50 IH ONE (16:09)
[2022-03-20 16:42] VITALS: BP 153/84; O2SAT 91
[2022-03-20] MEDS ORDERED: FLUTICASONE-SALMETEROL 250-50 IH SCH (19:00)
--- NOTE | 2022-03-20 20:06 | PCM.SSS ---
History of Present Illness - Chief Complaint Chief Complaint: TIA History of Present Illness: is a 81 year old female patient of Dr Coronel who presents to ED for evaluation of possible TIA/stroke. At approximately 8 PM patient was at home talking to her son on the phone. He observed patient appeared confused. She was having difficulty speaking. Patient's symptoms lasted for approximately 10 minutes before resolving. Upon arrival to our ED patient was back to her baseline. No headache. No nausea vomiting or diaphoresis. No numbness tingling or weakness. No chest pain or shortness of breath. Symptoms were transient. Patient states she has had sinus congestion like the start of a cold x 1 day and tested positive at home for Covid and is positive in ER. CT Head and MRI brain showed normal ischemic changes for patients age. MRA neck showed minimal right and left carotid plaque. MRA brain was normal. Patient is admitted to Covid room and has had no set backs overnight. Appetite is good and she is tolerating Paxlovid. No further confusion or RUE weakness or any neurologic defecits. Patient states family is supportive and she would like to go home. - Review of Systems Constitutional: Fatigue Eyes: No Symptoms Ears, Nose, & Throat: Nose Congestion Respiratory: No Symptoms Cardiac: No Symptoms Abdominal/Gastrointestinal: No Symptoms Genitourinary Symptoms: No Symptoms Musculoskeletal: No Symptoms Skin: No Symptoms Neurological: Focal Weakness (RUE- resolved in ER) Psychological: No Symptoms Endocrine: No Symptoms Hematologic/Lymphatic: No Symptoms Immunological/Allergic: No Symptoms Medications & Allergies Home Medications: Home Medication List Aspirin [Baby Aspirin] 81 mg PO DAILY 09/16/12 [History Confirmed 03/20/22] Atorvastatin Calcium 40 mg PO QHS 09/16/12 [History Confirmed 03/20/22] Diltiazem HCl 240 mg [Cardizem CD 240 MG] 240 mg PO DAILY 09/16/12 [History Confirmed 03/20/22] Fluticasone/Salmeterol [Advair Hfa 115-21 Mcg Inhaler] 1 spray NS BID 09/16/12 [History Confirmed 03/20/22] Ipratropium/Albuterol Sulfate [Combivent Inhaler] 2 puff IH QID PRN 09/16/12 [History Confirmed 03/20/22] Alendronate Sodium 70 mg PO WEEKLY 03/19/22 [History Confirmed 03/20/22] Calcium Carbonate [Calcium] 600 mg PO BID 03/19/22 [History Confirmed 03/20/22] Nirmatrelvir/Ritonavir [Paxlovid 300-100 mg Pack (Eua)] 400 mg PO BID 03/20/22 [History Confirmed 03/20/22] Allergies/Adverse Reactions: Allergies Allergy/AdvReac Type Severity Reaction Status Date / Time No Known Drug Allergies Allergy Verified 03/19/22 21:08 - Past Medical History Past Medical History: Yes Neurological History: No Pertinent History ENT History: Cataracts Cardiac History: High Cholesterol, Hypertension, Myocardial Infarction (CO), Peripheral Vascular Disease Respiratory History: COPD Endocrine Medical History: No Pertinent History Musculoskelatal History: Arthritis, Fractures GI Medical History: Hemorrhoids, Polyps History: No Pertinent History Pyscho-Social History: No Pertinent History Reproductive Disorders: No Pertinent History Comment: colonoscopy 5-[address] Coronel, broken toes - Past Surgical History Past Surgical History: Yes Neuro Surgical History: No Pertinent History Cardiac History: Cardiac Catheterization Respiratory Surgery: No Pertinent History GI Surgical History: No Pertinent History Genitourinary Surgical Hx: No Pertinent History Musculskeletal Surgical Hx: Other Female Surgical History: Hysterectomy, Other Other Surgical History: 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", colonoscopy with polyectomy 5-6 yrs ago, some broken toes,two breast left,biopsy - Social History Smoking Status: Never smoker Exposure to second hand smoke: No Alcohol: None Drug Use: none - Physical Exam Vital Signs: Vital Signs - 24 hr Temp Pulse Resp BP Pulse Ox 03/20/22 16:00 97.7 F 84 16 153/84 91 L 03/20/22 11:36 98.5 F 84 16 182/87 92 L 03/20/22 09:33 69 18 94 L 03/20/22 07:59 98.5 F 79 16 152/77 92 L 03/20/22 04:00 99 F 62 21 149/74 92 L 03/20/22 01:35 67 18 92 L 03/20/22 00:53 99 F 61 16 173/74 92 L 03/20/22 00:00 61 16 161/84 92 L 03/19/22 23:39 92 L 03/19/22 23:00 63 16 170/74 93 L 02/06/23 22:10 66 18 151/106 92 L 03/19/22 21:10 93 L 03/19/22 20:52 98.6 F 71 18 163/74 94 L General Appearance: no apparent distress Neurologic Exam: alert, oriented x 3, cooperative, 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, normal mood/affect, nml cerebellar function, nml station & gait Eye Exam: eyes nml inspection Ears, Nose, Throat Exam: moist mucous membranes, other (mild nasal congestion) Neck Exam: normal inspection Respiratory Exam: normal breath sounds Cardiovascular Exam: regular rate/rhythm Gastrointestinal/Abdomen Exam: soft (nontemder) Pelvic Exam: not done Rectal Exam: not done Back Exam: normal inspection Extremity Exam: normal inspection Skin Exam: normal color, warm, dry Results - Labs Lab/Micro Results: Lab Results-Last 24 Hours 03/19/22 03/19/22 03/19/22 Range/Units 21:03 21:45 22:10 WBC 7.0 (4.0-10.5) x10^3/uL RBC 4.59 (4.1-5.4) x10^6/uL Hgb 12.7 (12.0-16.0) g/dL Hct 39.9 (35-47) % MCV 86.9 (78-100) fL MCH 27.7 (26-32) pg MCHC 31.8 L (32-36) g/dL RDW 14.9 H (11.5-14.0) % Plt Count 196 (150-450) x10^3/uL MPV 9.8 (7.5-11.0) fL Gran % 75.2 H (36.0-66.0) % Immature Gran % (Auto) 0.3 (0.00-0.4) % Nucleat RBC Rel Count 0.0 (0.00-0.1) % Eos # (Auto) 0.03 (0-0.5) x10^3/uL Immature Gran # (Auto) 0.02 (0.00-0.03) x10^3u/L Absolute Lymphs (auto) 0.92 L (1.0-4.6) x10^3/uL Absolute Monos (auto) 0.73 (0.0-1.3) x10^3/uL Absolute Nucleated RBC 0.00 (0.00-0.01) x10^3u/L Lymphocytes % 13.1 L (24.0-44.0) % Monocytes % 10.4 (0.0-12.0) % Eosinophils % 0.4 (0.00-5.0) % Basophils % 0.6 (0.0-0.4) % Absolute Granulocytes 5.30 (1.4-6.9) x10^3/uL Basophils # 0.04 (0-0.4) x10^3/uL Sodium 134 L (137-145) mmol/L Potassium 3.8 (3.5-5.1) mmol/L Chloride 103 (98-107) mmol/L Carbon Dioxide 27 (22-30) mmol/L Anion Gap 8.0 (5-15) MEQ/L BUN 29 H (7-17) mg/dL Creatinine 1.06 H (0.52-1.04) mg/dL Estimated GFR 52.6 ML/MIN Glucose 111 H (74-106) mg/dL Calcium 9.2 (8.4-10.2) mg/dL Total Bilirubin 0.40 (0.2-1.3) mg/dL AST 24 (14-36) U/L ALT 17 (0-35) U/L Alkaline Phosphatase 77 (38-126) U/L Troponin I < 0.012 (0.000-0.034) ng/mL Serum Total Protein 7.0 (6.3-8.2) g/dL Albumin 4.0 (3.5-5.0) g/dL Triglycerides (30-150) mg/dL Cholesterol (50-200) mg/dL LDL Cholesterol (30-100) mg/dL HDL Cholesterol (40-60) mg/dL Heart Disease Risk Ratio Urine Opiates Level (NEGATIVE) Ur Methadone (NEGATIVE) Urine Barbiturates (NEGATIVE) Ur Phencyclidine (PCP) (NEGATIVE) Urine Amphetamine (NEGATIVE) U Benzodiazepine Level (NEGATIVE) Urine Cocaine (NEGATIVE) Urine Marijuana (THC) (NEGATIVE) Influenza Type A Ag NEGATIVE (NEGATIVE) Influenza Type B Ag NEGATIVE (NEGATIVE) RSV (PCR) NEGATIVE (Negative) SARS-CoV-2 (PCR) POSITIVE A (NEGATIVE) 02/06/23 02/07/23 02/07/23 Range/Units 22:24 01:35 05:20 WBC (4.0-10.5) x10^3/uL RBC (4.1-5.4) x10^6/uL Hgb (12.0-16.0) g/dL Hct (35-47) % MCV (78-100) fL MCH (26-32) pg MCHC (32-36) g/dL RDW (11.5-14.0) % Plt Count (150-450) x10^3/uL MPV (7.5-11.0) fL Gran % (36.0-66.0) % Immature Gran % (Auto) (0.00-0.4) % Nucleat RBC Rel Count (0.00-0.1) % Eos # (Auto) (0-0.5) x10^3/uL Immature Gran # (Auto) (0.00-0.03) x10^3u/L Absolute Lymphs (auto) (1.0-4.6) x10^3/uL Absolute Monos (auto) (0.0-1.3) x10^3/uL Absolute Nucleated RBC (0.00-0.01) x10^3u/L Lymphocytes % (24.0-44.0) % Monocytes % (0.0-12.0) % Eosinophils % (0.00-5.0) % Basophils % (0.0-0.4) % Absolute Granulocytes (1.4-6.9) x10^3/uL Basophils # (0-0.4) x10^3/uL Sodium (137-145) mmol/L Potassium (3.5-5.1) mmol/L Chloride (98-107) mmol/L Carbon Dioxide (22-30) mmol/L Anion Gap (5-15) MEQ/L BUN (7-17) mg/dL Creatinine (0.52-1.04) mg/dL Estimated GFR ML/MIN Glucose (74-106) mg/dL Calcium (8.4-10.2) mg/dL Total Bilirubin (0.2-1.3) mg/dL AST (14-36) U/L ALT (0-35) U/L Alkaline Phosphatase (38-126) U/L Troponin I < 0.012 < 0.012 (0.000-0.034) ng/mL Serum Total Protein (6.3-8.2) g/dL Albumin (3.5-5.0) g/dL Triglycerides (30-150) mg/dL Cholesterol (50-200) mg/dL LDL Cholesterol (30-100) mg/dL HDL Cholesterol (40-60) mg/dL Heart Disease Risk Ratio Urine Opiates Level NEGATIVE (NEGATIVE) Ur Methadone NEGATIVE (NEGATIVE) Urine Barbiturates NEGATIVE (NEGATIVE) Ur Phencyclidine (PCP) NEGATIVE (NEGATIVE) Urine Amphetamine NEGATIVE (NEGATIVE) U Benzodiazepine Level NEGATIVE (NEGATIVE) Urine Cocaine NEGATIVE (NEGATIVE) Urine Marijuana (THC) NEGATIVE (NEGATIVE) Influenza Type A Ag (NEGATIVE) Influenza Type B Ag (NEGATIVE) RSV (PCR) (Negative) SARS-CoV-2 (PCR) (NEGATIVE) 03/20/22 Range/Units 05:20 WBC (4.0-10.5) x10^3/uL RBC (4.1-5.4) x10^6/uL Hgb (12.0-16.0) g/dL Hct (35-47) % MCV (78-100) fL MCH (26-32) pg MCHC (32-36) g/dL RDW (11.5-14.0) % Plt Count (150-450) x10^3/uL MPV (7.5-11.0) fL Gran % (36.0-66.0) % Immature Gran % (Auto) (0.00-0.4) % Nucleat RBC Rel Count (0.00-0.1) % Eos # (Auto) (0-0.5) x10^3/uL Immature Gran # (Auto) (0.00-0.03) x10^3u/L Absolute Lymphs (auto) (1.0-4.6) x10^3/uL Absolute Monos (auto) (0.0-1.3) x10^3/uL Absolute Nucleated RBC (0.00-0.01) x10^3u/L Lymphocytes % (24.0-44.0) % Monocytes % (0.0-12.0) % Eosinophils % (0.00-5.0) % Basophils % (0.0-0.4) % Absolute Granulocytes (1.4-6.9) x10^3/uL Basophils # (0-0.4) x10^3/uL Sodium (137-145) mmol/L Potassium (3.5-5.1) mmol/L Chloride (98-107) mmol/L Carbon Dioxide (22-30) mmol/L Anion Gap (5-15) MEQ/L BUN (7-17) mg/dL Creatinine (0.52-1.04) mg/dL Estimated GFR ML/MIN Glucose (74-106) mg/dL Calcium (8.4-10.2) mg/dL Total Bilirubin (0.2-1.3) mg/dL AST (14-36) U/L ALT (0-35) U/L Alkaline Phosphatase (38-126) U/L Troponin I (0.000-0.034) ng/mL Serum Total Protein (6.3-8.2) g/dL Albumin (3.5-5.0) g/dL Triglycerides 117 (30-150) mg/dL Cholesterol 145 (50-200) mg/dL LDL Cholesterol 54 (30-100) mg/dL HDL Cholesterol 47 (40-60) mg/dL Heart Disease Risk Ratio 3.1 Urine Opiates Level (NEGATIVE) Ur Methadone (NEGATIVE) Urine Barbiturates (NEGATIVE) Ur Phencyclidine (PCP) (NEGATIVE) Urine Amphetamine (NEGATIVE) U Benzodiazepine Level (NEGATIVE) Urine Cocaine (NEGATIVE) Urine Marijuana (THC) (NEGATIVE) Influenza Type A Ag (NEGATIVE) Influenza Type B Ag (NEGATIVE) RSV (PCR) (Negative) SARS-CoV-2 (PCR) (NEGATIVE) - Radiology Impressions Radiology Exams & Impressions: Radiology Procedures Category Date Time Status HEAD WITHOUT CONTRAST [CT] Stat Exams 03/19/22 21:04 Completed MRA BRAIN WITHOUT CONTRAST [MRI] Stat Exams 03/20/22 00:38 Completed MRA NECK WITH CONTRAST [MRI] Stat Exams 03/20/22 00:38 Completed MRI BRAIN W/O CONTRAST [MRI] Stat Exams 03/20/22 00:38 Completed - Other Procedures and Tests Respiratory Therapy 03/20/22 03:53 Respiratory Therapy Assessment DAILY 03/20/22 03:54 Respiratory MDI BID 03/21/22 05:00 EKG ROUTINE 03/22/22 05:00 EKG ROUTINE Assessment/Plan (1) COVID-19 Current Visit: No Status: Acute Assessment & Plan: continue Paxlovid Code(s): U07.1 - COVID-19 (2) Chronic sinusitis Current Visit: Yes Status: Chronic Assessment & Plan: as seen on CT Head Code(s): J32.9 - CHRONIC SINUSITIS, UNSPECIFIED (3) TIA (transient ischemic attack) Current Visit: Yes Status: Resolved Assessment & Plan: continue on ASA and follow with Dr Coronel Code(s): G45.9 - TRANSIENT CEREBRAL ISCHEMIC ATTACK, UNSPECIFIED Hospital Summary - Hospital Course Hospital Course: please see HPI -course discussed - Vitals & Intake/Output Vital Signs: Vital Signs Temperature 97.7 F 03/20/22 16:00 Pulse Rate 84 03/20/22 16:00 Respiratory Rate 16 03/20/22 16:00 Blood Pressure 153/84 03/20/22 16:00 O2 Sat by Pulse Oximetry 91 L 03/20/22 16:00 Intake & Output: Intake & Output 03/18/22 03/19/22 03/20/22 03/21/22 11:59 11:59 11:59 11:59 Intake Total 480 480 Output Total 1300 Balance 480 -820 Weight 64.8 kg - Lab Result Diagrams: 03/19/22 21:03 03/19/22 21:45 Lab Results-Last 24 Hrs: Lab Results-Last 24 Hours 03/19/22 03/19/22 03/19/22 Range/Units 21:03 21:45 22:10 WBC 7.0 (4.0-10.5) x10^3/uL RBC 4.59 (4.1-5.4) x10^6/uL Hgb 12.7 (12.0-16.0) g/dL Hct 39.9 (35-47) % MCV 86.9 (78-100) fL MCH 27.7 (26-32) pg MCHC 31.8 L (32-36) g/dL RDW 14.9 H (11.5-14.0) % Plt Count 196 (150-450) x10^3/uL MPV 9.8 (7.5-11.0) fL Gran % 75.2 H (36.0-66.0) % Immature Gran % (Auto) 0.3 (0.00-0.4) % Nucleat RBC Rel Count 0.0 (0.00-0.1) % Eos # (Auto) 0.03 (0-0.5) x10^3/uL Immature Gran # (Auto) 0.02 (0.00-0.03) x10^3u/L Absolute Lymphs (auto) 0.92 L (1.0-4.6) x10^3/uL Absolute Monos (auto) 0.73 (0.0-1.3) x10^3/uL Absolute Nucleated RBC 0.00 (0.00-0.01) x10^3u/L Lymphocytes % 13.1 L (24.0-44.0) % Monocytes % 10.4 (0.0-12.0) % Eosinophils % 0.4 (0.00-5.0) % Basophils % 0.6 (0.0-0.4) % Absolute Granulocytes 5.30 (1.4-6.9) x10^3/uL Basophils # 0.04 (0-0.4) x10^3/uL Sodium 134 L (137-145) mmol/L Potassium 3.8 (3.5-5.1) mmol/L Chloride 103 (98-107) mmol/L Carbon Dioxide 27 (22-30) mmol/L Anion Gap 8.0 (5-15) MEQ/L BUN 29 H (7-17) mg/dL Creatinine 1.06 H (0.52-1.04) mg/dL Estimated GFR 52.6 ML/MIN Glucose 111 H (74-106) mg/dL Calcium 9.2 (8.4-10.2) mg/dL Total Bilirubin 0.40 (0.2-1.3) mg/dL AST 24 (14-36) U/L ALT 17 (0-35) U/L Alkaline Phosphatase 77 (38-126) U/L Troponin I < 0.012 (0.000-0.034) ng/mL Serum Total Protein 7.0 (6.3-8.2) g/dL Albumin 4.0 (3.5-5.0) g/dL Triglycerides (30-150) mg/dL Cholesterol (50-200) mg/dL LDL Cholesterol (30-100) mg/dL HDL Cholesterol (40-60) mg/dL Heart Disease Risk Ratio Urine Opiates Level (NEGATIVE) Ur Methadone (NEGATIVE) Urine Barbiturates (NEGATIVE) Ur Phencyclidine (PCP) (NEGATIVE) Urine Amphetamine (NEGATIVE) U Benzodiazepine Level (NEGATIVE) Urine Cocaine (NEGATIVE) Urine Marijuana (THC) (NEGATIVE) Influenza Type A Ag NEGATIVE (NEGATIVE) Influenza Type B Ag NEGATIVE (NEGATIVE) RSV (PCR) NEGATIVE (Negative) SARS-CoV-2 (PCR) POSITIVE A (NEGATIVE) 03/19/22 03/20/22 03/20/22 Range/Units 22:24 01:35 05:20 WBC (4.0-10.5) x10^3/uL RBC (4.1-5.4) x10^6/uL Hgb (12.0-16.0) g/dL Hct (35-47) % MCV (78-100) fL MCH (26-32) pg MCHC (32-36) g/dL RDW (11.5-14.0) % Plt Count (150-450) x10^3/uL MPV (7.5-11.0) fL Gran % (36.0-66.0) % Immature Gran % (Auto) (0.00-0.4) % Nucleat RBC Rel Count (0.00-0.1) % Eos # (Auto) (0-0.5) x10^3/uL Immature Gran # (Auto) (0.00-0.03) x10^3u/L Absolute Lymphs (auto) (1.0-4.6) x10^3/uL Absolute Monos (auto) (0.0-1.3) x10^3/uL Absolute Nucleated RBC (0.00-0.01) x10^3u/L Lymphocytes % (24.0-44.0) % Monocytes % (0.0-12.0) % Eosinophils % (0.00-5.0) % Basophils % (0.0-0.4) % Absolute Granulocytes (1.4-6.9) x10^3/uL Basophils # (0-0.4) x10^3/uL Sodium (137-145) mmol/L Potassium (3.5-5.1) mmol/L Chloride (98-107) mmol/L Carbon Dioxide (22-30) mmol/L Anion Gap (5-15) MEQ/L BUN (7-17) mg/dL Creatinine (0.52-1.04) mg/dL Estimated GFR ML/MIN Glucose (74-106) mg/dL Calcium (8.4-10.2) mg/dL Total Bilirubin (0.2-1.3) mg/dL AST (14-36) U/L ALT (0-35) U/L Alkaline Phosphatase (38-126) U/L Troponin I < 0.012 < 0.012 (0.000-0.034) ng/mL Serum Total Protein (6.3-8.2) g/dL Albumin (3.5-5.0) g/dL Triglycerides (30-150) mg/dL Cholesterol (50-200) mg/dL LDL Cholesterol (30-100) mg/dL HDL Cholesterol (40-60) mg/dL Heart Disease Risk Ratio Urine Opiates Level NEGATIVE (NEGATIVE) Ur Methadone NEGATIVE (NEGATIVE) Urine Barbiturates NEGATIVE (NEGATIVE) Ur Phencyclidine (PCP) NEGATIVE (NEGATIVE) Urine Amphetamine NEGATIVE (NEGATIVE) U Benzodiazepine Level NEGATIVE (NEGATIVE) Urine Cocaine NEGATIVE (NEGATIVE) Urine Marijuana (THC) NEGATIVE (NEGATIVE) Influenza Type A Ag (NEGATIVE) Influenza Type B Ag (NEGATIVE) RSV (PCR) (Negative) SARS-CoV-2 (PCR) (NEGATIVE) 03/20/22 Range/Units 05:20 WBC (4.0-10.5) x10^3/uL RBC (4.1-5.4) x10^6/uL Hgb (12.0-16.0) g/dL Hct (35-47) % MCV (78-100) fL MCH (26-32) pg MCHC (32-36) g/dL RDW (11.5-14.0) % Plt Count (150-450) x10^3/uL MPV (7.5-11.0) fL Gran % (36.0-66.0) % Immature Gran % (Auto) (0.00-0.4) % Nucleat RBC Rel Count (0.00-0.1) % Eos # (Auto) (0-0.5) x10^3/uL Immature Gran # (Auto) (0.00-0.03) x10^3u/L Absolute Lymphs (auto) (1.0-4.6) x10^3/uL Absolute Monos (auto) (0.0-1.3) x10^3/uL Absolute Nucleated RBC (0.00-0.01) x10^3u/L Lymphocytes % (24.0-44.0) % Monocytes % (0.0-12.0) % Eosinophils % (0.00-5.0) % Basophils % (0.0-0.4) % Absolute Granulocytes (1.4-6.9) x10^3/uL Basophils # (0-0.4) x10^3/uL Sodium (137-145) mmol/L Potassium (3.5-5.1) mmol/L Chloride (98-107) mmol/L Carbon Dioxide (22-30) mmol/L Anion Gap (5-15) MEQ/L BUN (7-17) mg/dL Creatinine (0.52-1.04) mg/dL Estimated GFR ML/MIN Glucose (74-106) mg/dL Calcium (8.4-10.2) mg/dL Total Bilirubin (0.2-1.3) mg/dL AST (14-36) U/L ALT (0-35) U/L Alkaline Phosphatase (38-126) U/L Troponin I (0.000-0.034) ng/mL Serum Total Protein (6.3-8.2) g/dL Albumin (3.5-5.0) g/dL Triglycerides 117 (30-150) mg/dL Cholesterol 145 (50-200) mg/dL LDL Cholesterol 54 (30-100) mg/dL HDL Cholesterol 47 (40-60) mg/dL Heart Disease Risk Ratio 3.1 Urine Opiates Level (NEGATIVE) Ur Methadone (NEGATIVE) Urine Barbiturates (NEGATIVE) Ur Phencyclidine (PCP) (NEGATIVE) Urine Amphetamine (NEGATIVE) U Benzodiazepine Level (NEGATIVE) Urine Cocaine (NEGATIVE) Urine Marijuana (THC) (NEGATIVE) Influenza Type A Ag (NEGATIVE) Influenza Type B Ag (NEGATIVE) RSV (PCR) (Negative) SARS-CoV-2 (PCR) (NEGATIVE) - Radiology Exams Ordered Rad Exams-Entire Visit: Radiology Procedures Category Date Time Status HEAD WITHOUT CONTRAST [CT] Stat Exams 03/19/22 21:04 Completed MRA BRAIN WITHOUT CONTRAST [MRI] Stat Exams 03/20/22 00:38 Completed MRA NECK WITH CONTRAST [MRI] Stat Exams 03/20/22 00:38 Completed MRI BRAIN W/O CONTRAST [MRI] Stat Exams 03/20/22 00:38 Completed - Procedures and Test Procedures and Tests throughout Hospitalization: Therapy Orders & Screens 03/20/22 00:38 EKG [id number],QAMX3,PRN Comment: 03/20/22 03:53 Respiratory Therapy Assessment DAILY Comment: Diagnosis: TIA 03/20/22 03:54 Respiratory MDI BID Comment: Diagnosis: TIA 03/20/22 05:00 EKG ROUTINE Comment: Diagnosis: TIA 03/21/22 05:00 EKG ROUTINE Comment: Diagnosis: TIA 03/22/22 05:00 EKG ROUTINE Comment: Diagnosis: TIA - Discharge Disposition: Home, Self-Care Prescriptions: Continue Ipratropium/Albuterol Sulfate [Combivent Inhaler] 2 puff IH QID PRN Fluticasone/Salmeterol [Advair Hfa 115-21 Mcg Inhaler] 1 spray NS BID Diltiazem HCl 240 mg [Cardizem CD 240 MG] 240 mg PO DAILY Atorvastatin Calcium 40 mg PO QHS Aspirin [Baby Aspirin] 81 mg PO DAILY Calcium Carbonate [Calcium] 600 mg PO BID Alendronate Sodium 70 mg PO WEEKLY Nirmatrelvir/Ritonavir [Paxlovid 300-100 mg Pack (Eua)] 400 mg PO BID Instructions: Transient Ischemic Attack (DC), COVID-19 (DC) Follow up with: CARL CORONEL [Primary Care Provider] - Call for Appointment (CALL 03/21/22 AND SCHEDULE FOLLOW UP WITH DR. CORONEL FOR BEGINNING OF NEXT WEEK ) Forms: Discharge Instructions
[2022-03-20] MEDS ORDERED: RITONAVIR PO SCH (22:00)
[2022-03-20] MEDS ORDERED: NON-FORMULARY ITEM (Calcium Carbonate [Calcium] 600 MG Tablet) PO SCH (22:00)
[2022-03-20] MEDS ORDERED: LIPITOR 40MG PO SCH (22:00)
[2022-03-20] MEDS ORDERED: NIRMATRELVIR PO SCH (22:00)
[2022-03-21] MEDS ORDERED: DILTIAZEM HCL 240 MG PO SCH (10:00)
[2022-03-25] MEDS ORDERED: Fosamax 70 MG PO SCH (06:00)
== END 2022-03-20 18:19 | disposition home or self-care (01) ==
LOC: ED 20:36 → MED SURG 03-20 00:28
PROVIDERS: ADMIT Family Medicine; ATTEND Family Medicine
DX: U07.1 COVID-19 (principal); J32.9 Chronic sinusitis, unspecified; G45.9 Transient cerebral ischemic attack, unspecified; I10 Essential (primary) hypertension; E78.5 Hyperlipidemia, unspecified; Z79.899 Other long term (current) drug therapy; Z20.828 Contact with and (suspected) exposure to other viral communicable diseases
CPT/HCPCS: 0241U; 36000; 36415; 70450; 70544; 70548; 70551; 80053; 80061; 80307; 83721; 84484; 85025; 93005; 93041; 94640; 94760; 94762; 93268; 99284; A9270-GY; G0378